=== PATIENT | male | born 1945 | race Caucasian/White ===

== ENCOUNTER 2022-03-22 13:02 | Emergency (ER) | payer MEDICARE, BC ==
[~2022-03-22] VITALS: Ht 170.2 cm; Wt 85.7 kg
[2022-03-22] MEDS ORDERED: METPRE4DP PO (15:39)
[2022-03-22] MEDS ORDERED: CELE100 PO (15:39)
== END 2022-03-22 15:51 | disposition home or self-care (01) ==
LOC: ER 13:02
DX: M51.16 Intervertebral disc disorders with radiculopathy, lumbar region (principal); Z88.8 Allergy status to other drugs, medicaments and biological substances
CPT/HCPCS: 72100; 99283-25; A9270; J1100

== ENCOUNTER → 2023-03-12 | Outpatient (CLI) | payer MEDICARE, BC ==
[~2023-03-12] MED LIST: ATOR40TA PO; Aspir 8181 MG PO; CELE100 PO; METPRE4DP PO; MULVITA PO; NUTRITIONAL SUPPLEME; TOPROL XL25 MG PO
== END ==
LOC: LAB 14:45 → LAB SHORT 14:45
DX: L57.0 Actinic keratosis (principal); L90.5 Scar conditions and fibrosis of skin
CPT/HCPCS: 88305

== ENCOUNTER 2023-12-17 07:35 | Emergency (ER) | payer MEDICARE, BC ==
[~2023-12-17] VITALS: Ht 170.2 cm; Wt 79.4 kg
[~2023-12-17 07:35] MED LIST changes: +Lasix20 MG PO; +Zithromax250 MG PO
[2023-12-17 07:47] VITALS: BP 132/100
[2023-12-17] MEDS ORDERED: LOSARTAN POTASS25 M2 PO (07:54)
[2023-12-17] MEDS ORDERED: CARV6.25 PO (07:55)
[2023-12-17] MEDS ORDERED: TORS10 PO (07:56)
[2023-12-17] MEDS ORDERED: OMEP20ER PO (07:56)
[2023-12-17] MEDS ORDERED: FARXIGA5 MG PO (07:57)
[2023-12-17] MEDS ORDERED: Cephalexin Monohydrate 500 MG Cap PO ONE (08:30)
[2023-12-17] MEDS ORDERED: CEPH500 PO (08:31)
== END 2023-12-17 08:50 | disposition home or self-care (01) ==
LOC: ER 07:35
DX: L03.221 Cellulitis of neck (principal); Z79.82 Long term (current) use of aspirin; Z79.899 Other long term (current) drug therapy; Z88.4 Allergy status to anesthetic agent
CPT/HCPCS: 99282; A9270

== ENCOUNTER 2024-04-07 16:29 | Inpatient (IN) | payer MEDICARE, BC ==
[~2024-04-07] VITALS: Ht 170.2 cm; Wt 80.3 kg
[~2024-04-07 16:29] MED LIST changes: +CEPH500 PO; +Carvedilol12.5 MG PO; +FARXIGA5 MG PO; +LOSARTAN POTASS25 M2 PO; +OMEP20ER PO; +TORSE20 PO
[2024-04-07 17:11] LABS: BASOPHILS ABSOLUTE AUTO 0.02 K/mm3 (0.00-0.23); BASOPHILS PERCENT AUTO 0 % (0-2); EOSINOPHILS ABSOLUTE AUTO 0.02 K/mm3 (0.00-0.68); EOSINOPHILS PERCENT AUTO 0 % (0-6); Hematocrit 35.5 % (37.0-53.0); Hemoglobin 11.9 g/dL (13.5-17.5); IMMATURE GRAN ABSOLUTE AUTO 0.03 K/mm3 (0.00-0.10); IMMATURE GRAN PERCENT AUTO 0 % (0-1); LYMPHOCYTES ABSOLUTE AUTO 0.48 K/mm3 (0.84-5.20); LYMPHOCYTES PERCENT AUTO 6 % (21-46); MONOCYTES ABSOLUTE AUTO 0.93 K/mm3 (0.16-1.47); MONOCYTES PERCENT AUTO 12 % (4-13); Mean Corpuscular HGB 29.4 pg (26.0-34.0); Mean Corpuscular HGB Conc 33.5 g/dL (31.5-36.5); Mean Corpuscular Volume 88 fL (80-100); Mean Platelet Volume 10.6 fL (9.1-12.4); NEUTROPHILS ABSOLUTE AUTO 6.28 K/mm3 (1.96-9.15); NEUTROPHILS PERCENT AUTO 81 % (41-73); Platelet Count 115 K/mm3 (150-400); RDW Coefficient Variation 14.6 % (11.7-14.2); RDW Standard Deviation 46.5 fL (35.1-46.3); Red Blood Cell Count 4.05 M/mm3 (4.30-5.90); White Blood Cell Count 7.76 K/mm3 (4.00-11.30)
[2024-04-07 17:38] LABS: Influenza A, PCR NEGATIVE (NEGATIVE); Influenza B, PCR NEGATIVE (NEGATIVE); Resp Syncytial Virus, PCR NEGATIVE (NEGATIVE); SARS-Cov-2 (COVID-19) PCR, MMC NEGATIVE (NEGATIVE)
[2024-04-07 17:47] LABS: Albumin, Blood 3.7 g/dL (3.4-5.0); Albumin/Globulin Ratio 1.1 (0.8-1.8); Bilirubin, Total 1.3 mg/dL (0.1-1.0); Bun/Creatinine Ratio 24.6 (12.0-20.0); Creatinine, Blood 1.3 mg/dL (0.60-1.20); Globulin, Blood 3.4 g/dL (2.2-4.0); Potassium, Blood 4.1 mmol/L (3.5-5.5); Total Protein, Blood 7.1 g/dL (6.4-8.2)
[2024-04-07 19:54] LABS: Source, Urine Clean Catch
[2024-04-07 19:57] LABS: Appearance, Urine Clear (Clear); Bilirubin, Urine Neg (Neg); Blood, Urine Neg (Neg); Color, Urine Amber (P-Yellow); Glucose Qualitative, Urine 4+ (Neg); Ketones, Urine Neg (Neg); Leukocyte Esterase, Urine Neg (Neg); Nitrite, Urine Neg (Neg); Protein, Urine 2+ (Neg); Specific Gravity, Urine 1.015 (1.003-1.022); Urobilinogen, Urine NORM (Normal)
[2024-04-07 20:04] LABS: Bacteria Few /hpf; Red Blood Cells, Urine 0-2 /hpf (0-2); Squamous Epithelial Cells Rare /hpf (Few); White Blood Cells, Urine 0-2 /hpf (0-5)
[2024-04-07] MEDS ORDERED: FLU VACC TS2024-25(6MOS UP)/PF 45 MCG/0.5 ML SYRINGE IM ONE (23:25)
[2024-04-08] MEDS ORDERED: Apixaban 5 MG Tab PO ONE (03:40)
[2024-04-08] MEDS ORDERED: HYDROcodone 5-APAP 325 TAB PO PRN (05:00)
[2024-04-08] MEDS ORDERED: Omeprazole 20 MG CapCR PO SCH ×3 (05:00→08:28)
[2024-04-08] MEDS ORDERED: ELIQUIS5 M2 PO (05:20)
[2024-04-08 05:55] LABS: BASOPHILS ABSOLUTE AUTO 0.01 K/mm3 (0.00-0.23); BASOPHILS PERCENT AUTO 0 % (0-2); EOSINOPHILS PERCENT AUTO 0 % (0-6); Hematocrit 37.1 % (37.0-53.0); Hemoglobin 12.2 g/dL (13.5-17.5); IMMATURE GRAN ABSOLUTE AUTO 0.05 K/mm3 (0.00-0.10); IMMATURE GRAN PERCENT AUTO 1 % (0-1); LYMPHOCYTES ABSOLUTE AUTO 0.79 K/mm3 (0.84-5.20); LYMPHOCYTES PERCENT AUTO 8 % (21-46); MONOCYTES ABSOLUTE AUTO 1.02 K/mm3 (0.16-1.47); MONOCYTES PERCENT AUTO 10 % (4-13); Mean Corpuscular HGB 29.7 pg (26.0-34.0); Mean Corpuscular HGB Conc 32.9 g/dL (31.5-36.5); Mean Corpuscular Volume 90 fL (80-100); Mean Platelet Volume 10.7 fL (9.1-12.4); NEUTROPHILS ABSOLUTE AUTO 8.31 K/mm3 (1.96-9.15); NEUTROPHILS PERCENT AUTO 82 % (41-73); Platelet Count 112 K/mm3 (150-400); RDW Coefficient Variation 14.8 % (11.7-14.2); RDW Standard Deviation 48.4 fL (35.1-46.3); Red Blood Cell Count 4.11 M/mm3 (4.30-5.90); White Blood Cell Count 10.18 K/mm3 (4.00-11.30)
[2024-04-08] MEDS ORDERED: SPIRONOLACTONE50 MG PO (06:04)
[2024-04-08 06:15] LABS: Albumin, Blood 3.8 g/dL (3.4-5.0); Albumin/Globulin Ratio 1.1 (0.8-1.8); Bilirubin, Total 1.4 mg/dL (0.1-1.0); Bun/Creatinine Ratio 26.1 (12.0-20.0); Calcium, Blood 9.1 mg/dL (8.5-10.1); Creatinine, Blood 1.15 mg/dL (0.60-1.20); Globulin, Blood 3.6 g/dL (2.2-4.0); Magnesium, Blood 2.4 mg/dL (1.6-2.4); Potassium, Blood 4.1 mmol/L (3.5-5.5); Total Protein, Blood 7.4 g/dL (6.4-8.2)
[2024-04-08] MEDS ORDERED: Carvedilol 6.25 MG Tab PO SCH (08:00)
[2024-04-08] MEDS ORDERED: Enoxaparin 40 MG/0.4 ML SYR SC SCH (09:00)
[2024-04-08] MEDS ORDERED: Aspirin 81 MG Chew PO SCH (09:00)
[2024-04-08] MEDS ORDERED: Atorvastatin 40 MG Tab PO SCH (09:00)
[2024-04-08] MEDS ORDERED: Apixaban 5 MG Tab PO SCH (09:00)
[2024-04-08] MEDS ORDERED: Losartan Potassium 25 MG Tab PO SCH (09:00)
[2024-04-08] MEDS ORDERED: Torsemide 10 MG TAB PO SCH (09:00)
[2024-04-08 12:25] VITALS: BP 118/59
--- NOTE | 2024-04-08 12:57 | NUR ---
PATIENT, , AND DAUGHTER IN ROOM, ROOM ORIENTATION, SMOKE SAFETY, AND RAPID RESPONSE EDUCATION REVEIWED, PLEASANT TO CARE, PATIENT ALERT AND ORIENTED TO CONCRETE QUESTIONS, EATING LUNCH NOW, BED ALARM ON FOR FORGETFULNESS, CALL LIGHT WITH IN REACH
[2024-04-08] MEDS ORDERED: Azithromycin 500 MG in NS 250 ML IV SCH (13:20)
[2024-04-08] MEDS ORDERED: CefTRIAXone Sodium 1,000 MG in NS 100 ML IV SCH (13:21)
[2024-04-08] MEDS ORDERED: NS 250 ML IV PRN (14:00)
[2024-04-08 15:45] LABS: Source, Urine Clean Catch
[2024-04-08 16:01] LABS: Appearance, Urine Clear (Clear); Bilirubin, Urine Neg (Neg); Blood, Urine 3+ (Neg); Color, Urine Yellow (P-Yellow); Glucose Qualitative, Urine 4+ (Neg); Ketones, Urine Neg (Neg); Leukocyte Esterase, Urine Neg (Neg); Nitrite, Urine Neg (Neg); Protein, Urine 3+ (Neg); Urobilinogen, Urine 1+ (Normal)
[2024-04-08] MEDS ORDERED: Propofol 10mg/ml 20 ml Vial (Procedural) IV ONE (16:17)
[2024-04-08 16:18] LABS: Bacteria Rare /hpf; Red Blood Cells, Urine 0-2 /hpf (0-2); Squamous Epithelial Cells Not Seen /hpf (Few); White Blood Cells, Urine 0-2 /hpf (0-5)
[2024-04-08] MEDS ORDERED: NS 1,000 ML IV SCH (16:25)
[2024-04-08] MEDS ORDERED: Ondansetron HCl 2 MG / ML 2ML Vial IV PRN (16:25)
--- NOTE | 2024-04-08 17:39 | NUR ---
"Spiritual Care | Pt. Request Pt. is awake in bed when he welcomes my visit. Pt. displays evidence of occasional confusion. Pt. Facilitated a short life review, mariaelena Pt. 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 Pt. verbalized that his had been with him all day. 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 Considered matters of georgette and belief. Pt. verbalized an expectation that he would be able return home. Prayed with Pt. Pt. verbalized gratitude for the spiritual care visit."
[2024-04-08 18:10] VITALS: BP 118/52
--- NOTE | 2024-04-08 18:19 | NUR ---
US DONE, EATING DIET, VERY FREQUENT URINE VOIDS AND ONLY 10 ML AT A TIMES, BLADDER SCANNED, AND ONLY 23 ML FOUND IN BLADDER. MEDICATED FOR NAUSEA WITH ZOFRAN, PATIENT REPORTS RELIEF, BED ALARM PROPERTY MAINTENANCE TECHNICIAN LIGHT WITH IN REACH
[2024-04-08 20:38] VITALS: BP 79/54
[2024-04-08 20:47] VITALS: BP 107/55
[2024-04-09 05:28] VITALS: BP 131/65
[2024-04-09 05:28] LABS: BASOPHILS ABSOLUTE AUTO 0.02 K/mm3 (0.00-0.23); BASOPHILS PERCENT AUTO 0 % (0-2); EOSINOPHILS PERCENT AUTO 0 % (0-6); Hematocrit 30.6 % (37.0-53.0); Hemoglobin 10.1 g/dL (13.5-17.5); IMMATURE GRAN ABSOLUTE AUTO 0.04 K/mm3 (0.00-0.10); IMMATURE GRAN PERCENT AUTO 0 % (0-1); LYMPHOCYTES ABSOLUTE AUTO 0.96 K/mm3 (0.84-5.20); LYMPHOCYTES PERCENT AUTO 10 % (21-46); MONOCYTES ABSOLUTE AUTO 1.35 K/mm3 (0.16-1.47); MONOCYTES PERCENT AUTO 15 % (4-13); Mean Corpuscular HGB 29.4 pg (26.0-34.0); Mean Corpuscular Volume 89 fL (80-100); Mean Platelet Volume 10.5 fL (9.1-12.4); NEUTROPHILS ABSOLUTE AUTO 6.97 K/mm3 (1.96-9.15); NEUTROPHILS PERCENT AUTO 75 % (41-73); Platelet Count 80 K/mm3 (150-400); RDW Coefficient Variation 14.6 % (11.7-14.2); RDW Standard Deviation 47.2 fL (35.1-46.3); Red Blood Cell Count 3.44 M/mm3 (4.30-5.90); White Blood Cell Count 9.34 K/mm3 (4.00-11.30)
[2024-04-09 05:53] LABS: Albumin, Blood 3.1 g/dL (3.4-5.0); Bilirubin, Total 0.9 mg/dL (0.1-1.0); Bun/Creatinine Ratio 24.8 (12.0-20.0); Calcium, Blood 8.7 mg/dL (8.5-10.1); Creatinine, Blood 1.09 mg/dL (0.60-1.20); Globulin, Blood 3.1 g/dL (2.2-4.0); Potassium, Blood 4.1 mmol/L (3.5-5.5); Total Protein, Blood 6.2 g/dL (6.4-8.2)
[2024-04-09 07:39] VITALS: BP 143/103
[2024-04-09 10:02] VITALS: BP 100/53
[2024-04-09] MEDS ORDERED: Vancomycin HCL 2,000 MG in NS 500 ML IV ONE (14:30)
[2024-04-09 15:25] VITALS: BP 99/51
--- NOTE | 2024-04-09 17:17 | NUR ---
NO ACUTE CHANGES, ALERT AND ORIENTED TO SELF, FAMILY, PLACE, PERSON AND MOST THINGS. TACHYPNEA, 1PA TO BATHROOM, CALL LIGHT WITH IN REACH, BED ALARM ON, PT/OT WORKED WITH PATIENT, WILL RELAY TO PM RN
[2024-04-09 20:04] VITALS: BP 91/43
[2024-04-09 20:51] VITALS: BP 118/59
[2024-04-10 03:10] VITALS: BP 131/71
--- NOTE | 2024-04-10 05:08 | NUR ---
SHIFT SUMMARY: PT IS A 78 YO FULL CODE MAN. PT WAS ADMITTED FOR ARF W/HYPOXIA. PT IS A 1-2 PERSON ASSIST TO THE BATHROOM. PT HAS A PACEMAKER BT NO TELE.PT IS ON 4L OF OXYGEN BUT DOESENT USE O2 AT HOME. PT GETS FORGETFUL SO BED ALARM IS SET.
[2024-04-10 05:50] LABS: BASOPHILS ABSOLUTE AUTO 0.02 K/mm3 (0.00-0.23); BASOPHILS PERCENT AUTO 0 % (0-2); EOSINOPHILS ABSOLUTE AUTO 0.02 K/mm3 (0.00-0.68); EOSINOPHILS PERCENT AUTO 0 % (0-6); Hematocrit 30.1 % (37.0-53.0); Hemoglobin 9.7 g/dL (13.5-17.5); IMMATURE GRAN ABSOLUTE AUTO 0.04 K/mm3 (0.00-0.10); IMMATURE GRAN PERCENT AUTO 1 % (0-1); LYMPHOCYTES ABSOLUTE AUTO 1.19 K/mm3 (0.84-5.20); LYMPHOCYTES PERCENT AUTO 14 % (21-46); MONOCYTES ABSOLUTE AUTO 1.55 K/mm3 (0.16-1.47); MONOCYTES PERCENT AUTO 19 % (4-13); Mean Corpuscular HGB 29.3 pg (26.0-34.0); Mean Corpuscular HGB Conc 32.2 g/dL (31.5-36.5); Mean Corpuscular Volume 91 fL (80-100); NEUTROPHILS ABSOLUTE AUTO 5.55 K/mm3 (1.96-9.15); NEUTROPHILS PERCENT AUTO 66 % (41-73); Platelet Count 83 K/mm3 (150-400); RDW Coefficient Variation 14.6 % (11.7-14.2); RDW Standard Deviation 48.9 fL (35.1-46.3); Red Blood Cell Count 3.31 M/mm3 (4.30-5.90); White Blood Cell Count 8.37 K/mm3 (4.00-11.30)
[2024-04-10 06:16] LABS: Bun/Creatinine Ratio 27.2 (12.0-20.0); Calcium, Blood 8.6 mg/dL (8.5-10.1); Creatinine, Blood 0.99 mg/dL (0.60-1.20); Potassium, Blood 4.3 mmol/L (3.5-5.5)
[2024-04-10 07:51] VITALS: BP 89/57
[2024-04-10 09:15] VITALS: BP 104/65
[2024-04-10] MEDS ORDERED: Vancomycin HCL 1,500 MG in NS 250 ML IV SCH (15:00)
--- NOTE | 2024-04-10 15:11 | NUR ---
patient in ct scan now
[2024-04-10 18:31] VITALS: BP 121/74
[2024-04-10 19:27] VITALS: BP 122/64
[2024-04-10] MEDS ORDERED: Sennosides 8.6 MG Tab PO SCH (21:00)
[2024-04-11 05:03] VITALS: BP 149/86
[2024-04-11 07:25] VITALS: BP 139/77
[2024-04-11 07:26] VITALS: BP 125/82
[2024-04-11 07:28] VITALS: BP 142/71
[2024-04-11] MEDS ORDERED: Lactobacil 2-S.Thermo-Bifido 1 1 Cap PO SCH (09:00)
[2024-04-11] MEDS ORDERED: Ampicillin Sod/Sulbactam Sod 3 GM in NS 100 ML IV SCH (12:00)
[2024-04-11 15:34] VITALS: BP 141/74
--- NOTE | 2024-04-11 17:10 | NUR ---
SHIFT SUMMARY PATIENT A&O X4, FORGETFUL AT TIMES. CALLS APPROPRIATELY, NOT IMPULSIVE. STANDBY ASSIST WITH FWW. CONTINENT. PATIETNT RECIEVED IV ANTIBIOTICS, TOLERATED WELL. TITRATED FROM 3L O2 VIA NASAL CANULA TO 1L O2 AND MAINTAINS SATS >90%. PATIENT IN ROOM, BEDSIDE CHAIR, CALL LIGHT IN REACH, NO SIGNS OR SYMPTOMS OF DISTRESS, PLAN OF CARE ONGOING.
--- NOTE | 2024-04-11 18:16 | NUR ---
REVIEWED AND AGREE WITH EDGER HAND'S DOCUMENTATION
[2024-04-11 20:54] VITALS: BP 145/73
[2024-04-11] MEDS ORDERED: Docusate Sodium 100 MG Cap PO SCH (21:00)
[2024-04-12 02:55] VITALS: BP 149/88
[2024-04-12 04:56] LABS: Hematocrit 29.6 % (37.0-53.0); Mean Corpuscular HGB 29.7 pg (26.0-34.0); Mean Corpuscular HGB Conc 33.8 g/dL (31.5-36.5); Mean Corpuscular Volume 88 fL (80-100); Mean Platelet Volume 11.1 fL (9.1-12.4); Platelet Count 108 K/mm3 (150-400); Red Blood Cell Count 3.37 M/mm3 (4.30-5.90); White Blood Cell Count 6.86 K/mm3 (4.00-11.30)
[2024-04-12 05:43] LABS: Albumin, Blood 3.1 g/dL (3.4-5.0); Albumin/Globulin Ratio 0.9 (0.8-1.8); Bilirubin, Total 1.4 mg/dL (0.1-1.0); Bun/Creatinine Ratio 20.5 (12.0-20.0); Calcium, Blood 8.8 mg/dL (8.5-10.1); Creatinine, Blood 0.83 mg/dL (0.60-1.20); Globulin, Blood 3.5 g/dL (2.2-4.0); Potassium, Blood 4.1 mmol/L (3.5-5.5); Total Protein, Blood 6.6 g/dL (6.4-8.2)
--- NOTE | 2024-04-12 05:45 | NUR ---
SHIFT SUMMARY ADMITTED FOR RESPIRATORY FAILURE. FULL CODE. IV ANTIB RX ARE SCHEDULED. THIS NEWEST ROUND OF BLOOD CULTURES IS AGAIN POSITIVE FOR GRAM POSITIVE COCCI IN CHAINS (IN ALL FOUR BOTTLES). CHARGE INFORMED. AMPICILLIN IS ALREADY SCHEDULED AND BEING ADMINISTERED. CARDIAC DIET. 1 ASSIST W/FWW- BRP. A&O X4, FORGETFUL. 1 LPM O2 VIA NC. HX OF CHF, VALVE REPLACEMENTS X2, AFIB, ELIQUIS.
[2024-04-12 07:48] VITALS: BP 135/87
[2024-04-12] MEDS ORDERED: CefTRIAXone Sodium 2,000 MG in NS 100 ML IV SCH (09:00)
--- NOTE | 2024-04-12 10:21 | NUR ---
DR. GALVEZ NOTIFED OF PATIENT'S POSITIVE BLOOD CULTURES. I ALSO NOTIFIED HER THAT I NOTICED THAT THE PATIENT HAS BEEN DIAPHORETIC THIS MORNING; COMPLAINING OF BEING HOT. PATIENT DOES NOT HAVE A TEMPERATURE ORAL 98.2 AND BLOOD SUGAR OF 116. PATIENT DENIES CHEST, SHORTNESS OF BREATH, NUMBNESS OR TINGLING. VITALS STABLE. DR. GALVEZ STATES TO DO AN EKG AND ORDER TROPONINS.
--- NOTE | 2024-04-12 12:02 | NUR ---
Pt. is awake and sitting up in a recliner. Spouse and daughter are at bediside. Pt. is pleasant. Facilitated an udpate from the Pt. Family at bedside engaged in matters of georgette and belief, and in the process a measure of rapport is established. Prayed for the Pt. Pt. and family verbalized gratitude for the spiritual care visit.
--- NOTE | 2024-04-12 16:53 | NUR ---
SHIFT SUMMARY: PATIENT IMPROVED THIS AFTERNOON; NO LONGER DIAPHORETIC AND STATING THAT HE IS FEELING BETTER. HE CONTINUES TO GET IV ANTIBIOTICS AND IS ALSO AWAITING NEGATIVE BLOOD CULTURES. HE IS STILL REQUIRING 1-2 LITERS OF NASAL CANNULA OXYGEN TO MAINTAIN OXYGEN SATURATION ABOVE 90%. PATIENT IS IN BED, BED ALARM SET, CALL LIGHT WITHIN REACH, NO SIGNS OR SYMPTOMS OF DISTRESS, PLAN OF CARE ONGOING.
[2024-04-12 17:07] VITALS: BP 156/91
[2024-04-12 21:24] VITALS: BP 147/81
[2024-04-12 22:00] VITALS: BP 123/90
--- NOTE | 2024-04-12 22:38 | NUR ---
NATALIA CASEY- UNWITNESSES FALL. PT REPORTS TO THIS FURNACE CHARGER THAT WHILE TRYING TO TRANSFER FROM HOSPITAL BED TO THE RESTROOM, PT FELL ON HIS BACK. PT DENIES HITTING HIS HEAD. PT DENIES ANY PAIN. VSS. CHARGE NURSE NOTIFIED. ON-CALL HOSPITALIST NOTIFIED. BED AT THE LOWEST POSITION, CALL LIGHT WITHIN USE. BED ALARM FOR SAFETY. EDUCATED ICT QUALITY ASSURANCE ENGINEER LIGHT, WILL SBA WHILE PT NEEDS TO USE THE RESTROOM. URINAL BY THE BEDSIDE THAT PT WAS USING DURING PREVIOUS SHIFT. PT ABLE TO USE THE URINAL DURING THIS SHIFT.
[2024-04-13] MEDS ORDERED: Melatonin 5 MG Tablet PO ONE (01:00)
[2024-04-13] MEDS ORDERED: Melatonin 5 MG Tablet PO PRN (01:00)
--- NOTE | 2024-04-13 01:37 | NUR ---
T-ORDER RECEIVED FOR MELATONIN PO 5MG QHS PRN FROM ON-CALL HOSPITALIST DR. HOPSON. ENTERED TO Expert, SEE EMAR.
--- NOTE | 2024-04-13 03:16 | NUR ---
SHIFT SUMMARY PT REPORTED FALLING OUT OF BED WHITE ATTEMPTING TO TRANSFER TO USE THE RESTROOM. PT REPORTS LANDING ON HIS BACK. PT DENIES HITTING HEAD ON THE FLOOR. FOUNDATION DIGGER NOTIFIED, ON-CALL HOSPITALIST NOTIFIED. IRIS FILED. SEE PREVIOUS NOTE. NO REDNESS OR SWELLING PER SHIFT ASSESSMENT. NO OPEN AREAS IN THE SKIN. PT AWAKE, REQUESTED "SLEEPING PILL", THIS RUG CUTTER CALLED ON-CALL HOSPITALIST DR. HOPSON, AND RECEIVED T-ORDER FOR PRN MELATONIN 5MG QHS. FIRST DOSE ADMINISTERED AT MIDNIGHT. PT APPEARS RESTLESS, WITH SOME CONFUSION SINCE THE BEGINNING OF THIS SHIFT. EASILY REORIENTED. PT PULLING ON O2 TUBING AND PULSE OX MONITOR CORD. O2 @2L VIA NASAL CANNULA>94% NEW IV ON RIGHT HAND. PT USING BEDSIDE URINAL, PULLUPS IN PLACE. PT C/O ABDOMINAL PAIN, PRN NORCO 5/325MG X1 ADMINISTERED WITH GOOD EFFECTIVNESS. PT AWAKE T/O THIS SHIFT, VOCALIZING PAIN. BED ALARM FOR SAFETY. NO ACUTE EVENTS DURING THE REST OF THE SHIFT. BED AT THE LOWEST POSITION, CALL LIGHT W/I REACH. RE-EDUCATED ELECTRODYNAMICIST LIGHT, AND EDUCATED TO REQUEST SBA OR 1-PERSON ASSIST WHEN NEED TO AMBULATE.
[2024-04-13 04:02] VITALS: BP 123/90
[2024-04-13 08:38] VITALS: BP 152/94
[2024-04-13] MEDS ORDERED: Furosemide 10 MG / ML 2ML Vial IV SCH (15:00)
[2024-04-13 16:23] VITALS: BP 118/86
--- NOTE | 2024-04-13 18:31 | NUR ---
Pt woke up this morning confused, pulled his IV and asked RN for help, Pt reoriented to hospital, and quickly was A&Ox4 and cooperative with care for the remainder of the shift. Attempted to wean pt off of O2, but pt desated to 85%, 2 L O2 via NC resumed, pt saturated in 90s. Pt complained of right shoulder pain from previous injury, PRN [place] given x1 effective. Lasix started today, pt encouraged to urinate in urinal for accurate output measurment. Blood cultures came back with gram (+) cocci and MD inessa aware, repeat cultures to be drawn with AM labs. Bed alarm set, call light in reach, bed in low and locked position.
--- NOTE | 2024-04-13 18:38 | NUR ---
Pt. is sitting up on the jesús eof his bed eating dinner when he calls me into the room and welcomes my visit. Pt. is Pleasant. Facilitated a conversation regard the Pts. care plan, and with theraputic listening was able to give the Pt. some encouragement. This attendance secretary let the Pt. continue with his dinner. Pt. welcomed this attendance secretary to return tomorrow.
[2024-04-13 19:23] VITALS: BP 129/76
[2024-04-14 02:11] VITALS: BP 103/71
--- NOTE | 2024-04-14 03:08 | NUR ---
SHIFT SUMMARY PT IS A&O X2-3 DURING THIS SHIFT, CONFUSED AND AWAKE T/O THE NIGHT. PRN MELATONIN ADMINISTERED, NORCO ADMINISTERED X2 FOR 7/10 CHRONIC SHOULDER PAIN. PT HAS URGENCY TO VOID, BED ALARM FOR SAFETY. RE-EDUCATED ON URINAL USE. PT UP IN THE HALLWAY ASKING WHERE THE RESTROOM IS. REORIENTED TO THE HOSPITAL ROOM. NO ACUTE EVENTS DURING THIS SHIFT. BED AT LOWEST POSITION, CALL LIGHT W/I REACH.
--- NOTE | 2024-04-14 05:20 | NUR ---
PT IS IRRITATED D/T AWAKE T/O THE NIGHT. DID NOT GET ANY REST.
[2024-04-14 05:41] LABS: BASOPHILS ABSOLUTE AUTO 0.05 K/mm3 (0.00-0.23); BASOPHILS PERCENT AUTO 1 % (0-2); EOSINOPHILS ABSOLUTE AUTO 0.22 K/mm3 (0.00-0.68); EOSINOPHILS PERCENT AUTO 2 % (0-6); Hematocrit 29.1 % (37.0-53.0); Hemoglobin 9.6 g/dL (13.5-17.5); IMMATURE GRAN ABSOLUTE AUTO 0.19 K/mm3 (0.00-0.10); IMMATURE GRAN PERCENT AUTO 2 % (0-1); LYMPHOCYTES ABSOLUTE AUTO 1.32 K/mm3 (0.84-5.20); LYMPHOCYTES PERCENT AUTO 14 % (21-46); MONOCYTES ABSOLUTE AUTO 1.28 K/mm3 (0.16-1.47); MONOCYTES PERCENT AUTO 13 % (4-13); Mean Corpuscular HGB 29.7 pg (26.0-34.0); Mean Corpuscular Volume 90 fL (80-100); Mean Platelet Volume 11.4 fL (9.1-12.4); NEUTROPHILS ABSOLUTE AUTO 6.65 K/mm3 (1.96-9.15); NEUTROPHILS PERCENT AUTO 68 % (41-73); Platelet Count 171 K/mm3 (150-400); RDW Standard Deviation 45.6 fL (35.1-46.3); Red Blood Cell Count 3.23 M/mm3 (4.30-5.90); White Blood Cell Count 9.71 K/mm3 (4.00-11.30)
[2024-04-14 06:12] LABS: Albumin/Globulin Ratio 0.9 (0.8-1.8); Bilirubin, Total 0.9 mg/dL (0.1-1.0); Bun/Creatinine Ratio 20.9 (12.0-20.0); Calcium, Blood 8.9 mg/dL (8.5-10.1); Creatinine, Blood 0.81 mg/dL (0.60-1.20); Globulin, Blood 3.5 g/dL (2.2-4.0); Potassium, Blood 4.2 mmol/L (3.5-5.5); Total Protein, Blood 6.5 g/dL (6.4-8.2)
[2024-04-14 07:15] VITALS: BP 139/99
[2024-04-14] MEDS ORDERED: Furosemide 10 MG / ML 2ML Vial IV SCH (08:02)
[2024-04-14 14:49] VITALS: BP 117/77
[2024-04-14 16:17] VITALS: BP 96/54
[2024-04-14] MEDS ORDERED: Digoxin 0.25 MG Tab PO ONE (17:35)
[2024-04-14] MEDS ORDERED: Ampicillin Sod 2,000 MG in NS 100 ML IV SCH (18:00)
--- NOTE | 2024-04-14 18:05 | NUR ---
SHIFT SUMMARY MR BROWN IS ORIENTATED TO HIMSELF, SOMETIMES TO DATE, ORIENTATED TO PLACE AND VAGUE ABOUT REASON FOR BEING HERE IN THE HOSPITAL. HE SEEMED A CLEARER IN CONVERSATION THIS AFTERNOON THAN THIS MORNING. HIS WAS VISITING WITH HIM MOST OF THE DAY. SHE REPORTS THAT HE IS NOT NORMALLY CONFUSED. ON OXYGEN 2L N/C TODAY, ONLY REMOVED IT HIMSELF ONCE. PT AMBULATED TO BR MULTIPLE TIMES FOR FLATUS, NO BM. GAIT BELT, WALKER AND STAND BY ASSISTANCE. BED ALARM AND CHAIR ALARMS IN USE. MR BROWN MET WITH EYE CLINIC MANAGER TODAY; PLAN FOR MAGDA IN THE MORNING. C/O PAIN TO SHOULDER AND RIGHT ARM, MEDS HELPS TO TAKE THE EDGE OFF. R ARM PROPPED ON PILLOW. BED LOW, CALL LIGHT IN REACH.
[2024-04-14 19:23] VITALS: BP 122/72
[2024-04-15] VITALS (27 sets, daily range): BP systolic 101–176; BP diastolic 58–103
--- NOTE | 2024-04-15 00:44 | NUR ---
PT DEVELOPED EPITAXIS. PT IS NPO FOR SCHEDULED MAGDA PROCEDURE THIS AM. TRANSFER AND PUMPHOUSE OPERATOR NOTIFIED. THIS FERMENTER [place]AMPAGNE BY THE BEDSIDE.
--- NOTE | 2024-04-15 01:17 | NUR ---
PT DEVELOPED EPITAXIS. LASTING >30-45 MINS OF SIGNING THIS NOTE. THIS ELECTRONIC WIRER NOTIFIED LOCK UP WORKER AND CALLED ON-CALL HOSPITALIST. DR. RODRIGUEZ ASKED TO CALL BACK, IF LASTING >1HR, AND TO APPLY COOL COMPRESS. PT IS NPO AFTER MIDNIGHT D/T SCHEDULED MAGDA PROCEDURE TODAY.
--- NOTE | 2024-04-15 03:10 | NUR ---
SHIFT SUMMARY PT NPO AFTER MIDNIGHT, D/T SCHEDULED MAGDA PROCEDURE TODAY. PT UNABLE TO GET REST/SLEEP. HS PRN MELATONIN NOT EFFECTIVE. [id number] PT HAD EPITAXIS, NOT ON ACTIVE BLOOD THINNER MEDICATIONS PER EMAR. LIVESTOCK PRODUCER NOTIFIED. ON-CALL HOSPITALIST NOTIFIED. PER ORDER: COOL COMPRESS AND CALL BACK, IF BLEEDING>1HR. @0145 BLEEDING STOPPPED. @0145 PT REPORTS 10/10 BILATERAL CHRONIC SHOULDER PAIN. PRN NORCO ADMINISTERED WITH SIPS OF H2O. @0230 PT C/O DIZZINESS. RN BY THE BEDSIDE, NEURO ASSESSMENT WNL. VS 112/74, P.103, O2@2L, SAT'S 96%. @0245 PT REPORTS FEELING BETTER, RESTING IN BED. BED AT THE LOWEST POSITION, CALL LIGHT W/I REACH. PT IS A&O X 3, ABLE TO MAKE HIS NEEDS KNOWN, AND COOPERATIVE WITH CARE.
[2024-04-15] MEDS ORDERED: Oxymetazoline 0.05% Nasal Relief Spray 15mL BTL PRN ×2 (05:10→05:45)
--- NOTE | 2024-04-15 05:10 | NUR ---
NEW T-ORDER FROM ON-CALL HOSPITALIST : AFRIN NASAL SPRAY: 1 SPRAY Q6HRS PRN X4. ENTERED TO [employer], SEE EMAR. NO ADDITIONAL NEW ORDERS AT THIS TIME.
[2024-04-15 09:18] LABS: Bun/Creatinine Ratio 21.9 (12.0-20.0); Calcium, Blood 8.9 mg/dL (8.5-10.1); Creatinine, Blood 0.78 mg/dL (0.60-1.20); Potassium, Blood 4.1 mmol/L (3.5-5.5)
[2024-04-15] MEDS ORDERED: NS 1,000 ML IV ONE (09:39)
[2024-04-15] MEDS ORDERED: Benzocaine Oral Spray 0.5ML UD ONE (09:43)
--- NOTE | 2024-04-15 11:10 | NUR ---
REPORT CALLED TO LUCHO BARRETT; ALL QUESTIONS ANSWERED. PT RETURNED TO RM 356 VIA W/C, CONDITION STABLE.
--- NOTE | 2024-04-15 15:19 | NUR ---
SHIFT SUMMARY MR BROWN HAD MAGDA DONE THIS AM. HE WAS AWAKE AND COMFORTABLE ON RETURN TO MEDICAL UNIT. HE IS ORIENTATED TO HIMSELF, TO DATE, TO SITUATION AND TO HOSPITAL, BUT FORGETS THE NAME OF THE HOSPITAL OR THAT HE IS IN [place]. HE IS FORGETFUL BUT ENGAGES APPROPRIATELY IN CONVERSATION ABOUT HIS CARE. HE AMBULATED AROUND THE HALLWAYS VERY WELL ON 2L NC, WITH GAIT BELT AND WALKER. HE WAS STEADY WITH S/B ASSISTANCE. HE DENIED FEELING SOB AFTER WALKING. PULSE OX 97% AFTER WALKING SO TESTED ON ROOM AIR, SOMETIMES IN THE 90S BUT DOES DROP TO THE 80S ON ROOM AIR AT TIMES, SO BACK ON 2L NC. HE HAS CHRONIC R SHOULDER PAIN, HAS NOT REQUESTED PAIN MEDICATIONS THIS SHIFT. VERY SUPPORTIVE AT BEDSIDE. IN CHAIR WITH CHAIR ALARM ON, CALL LIGHT IN REACH.
[2024-04-15] MEDS ORDERED: Apixaban 5 MG Tab PO SCH (21:00)
--- NOTE | 2024-04-16 04:55 | NUR ---
SHIFT SUMMARY ALERT, ORIENTED TO SELF/DATE & TIME/SITUATION. PERIODS OF CONFUSION, REDIRECTABLE. COOPERATIVE & PLEASANT. NEW IV PLACED TO RAC, PREVIOUS IV DC'D BY PT SELF-REMOVAL DURING PERIOD OF CONFUSION. PT ON 2L NC OVERNIGHT, SPOT CHECKS SHOWING SPO2 93-95%. SPOT CHECK ON RA SHOWING SPO2 81-84%. PT ABLE TO REST DURING SHIFT. ABLE TO VOICE NEEDS, CALL LIGHT IN REACH & PT USING CALL LIGHT APPROPRIATELY. VOIDING, NO BM OVERNIGHT. PASSING GAS. PT VOICED UNDERSTANDING OF PLAN OF CARE, DENIES QUESTIONS/CONCERNS AT THIS TIME.
[2024-04-16 05:33] VITALS: BP 145/86
[2024-04-16 07:17] VITALS: BP 135/73
[2024-04-16 08:54] VITALS: BP 137/85
[2024-04-16 15:03] VITALS: BP 124/74
[2024-04-16 16:17] VITALS: BP 133/64
--- NOTE | 2024-04-16 16:38 | NUR ---
SHIFT SUMMARY MR BROWN SEEMS LESS CONFUSED TODAY, ORIENTATED TO SELF, PLACE, DATE AND SITUATION. FORGETFUL AT TIMES. HE WAS MORE SLEEPY TODAY AFTER 3 NIGHTS OF POOR SLEEP AND HAS TRAZADONE PX FOR THIS EVENING. HE AMBULATED AROUND THE HALLS WITH GAITBELT, WALKER, OXYGEN AND S/B ASSISTANCE. DECREASED TO 1LNC AND SATS ~93-94%. DOING INCENTIVE SPIROMETRY UP TO 1500CC WITH DECENT TECHNIQUE. BED AND CHAIR ALARMS USED. CALL LIGHT IN REACH. SUPPORTIVE AT BEDSIDE FOR MUCH OF THE DAY. PLAN FOR S.N.F. AT DISCHARGE RATHER THAT HOME ABX PER /MD. OUTBOUND SALES PROFESSIONAL NOTIFIED OF CHANGE OF PLAN.
[2024-04-16 20:18] VITALS: BP 101/55
[2024-04-16] MEDS ORDERED: Nystatin 100,000 Unit/GM CREAM 15 GM TOP SCH (21:00)
[2024-04-16] MEDS ORDERED: TraZODone HCl 50 MG Tab PO SCH (21:00)
[2024-04-17 04:48] VITALS: BP 122/66
[2024-04-17 04:55] LABS: BASOPHILS ABSOLUTE AUTO 0.05 K/mm3 (0.00-0.23); BASOPHILS PERCENT AUTO 1 % (0-2); EOSINOPHILS PERCENT AUTO 2 % (0-6); Hematocrit 27.2 % (37.0-53.0); IMMATURE GRAN ABSOLUTE AUTO 0.14 K/mm3 (0.00-0.10); IMMATURE GRAN PERCENT AUTO 2 % (0-1); LYMPHOCYTES ABSOLUTE AUTO 1.31 K/mm3 (0.84-5.20); LYMPHOCYTES PERCENT AUTO 15 % (21-46); MONOCYTES ABSOLUTE AUTO 1.48 K/mm3 (0.16-1.47); MONOCYTES PERCENT AUTO 17 % (4-13); Mean Corpuscular HGB 29.8 pg (26.0-34.0); Mean Corpuscular HGB Conc 33.1 g/dL (31.5-36.5); Mean Corpuscular Volume 90 fL (80-100); NEUTROPHILS PERCENT AUTO 65 % (41-73); Platelet Count 224 K/mm3 (150-400); RDW Coefficient Variation 14.1 % (11.7-14.2); RDW Standard Deviation 46.1 fL (35.1-46.3); Red Blood Cell Count 3.02 M/mm3 (4.30-5.90); White Blood Cell Count 8.98 K/mm3 (4.00-11.30)
[2024-04-17 05:24] LABS: C-REACTIVE PROTEIN, EXT RANGE 3.89 mg/dL (0.000-0.300)
[2024-04-17 05:25] LABS: Albumin, Blood 2.7 g/dL (3.4-5.0); Albumin/Globulin Ratio 0.8 (0.8-1.8); Bilirubin, Total 0.7 mg/dL (0.1-1.0); Bun/Creatinine Ratio 17.4 (12.0-20.0); Calcium, Blood 8.8 mg/dL (8.5-10.1); Creatinine, Blood 0.86 mg/dL (0.60-1.20); Globulin, Blood 3.2 g/dL (2.2-4.0); Potassium, Blood 3.5 mmol/L (3.5-5.5); Total Protein, Blood 5.9 g/dL (6.4-8.2)
[2024-04-17 07:27] VITALS: BP 154/79
[2024-04-17] MEDS ORDERED: Potassium Chloride 20 MEQ TabCR PO ONE (12:00)
[2024-04-17] MEDS ORDERED: Losartan Potassium 25 MG Tab PO SCH (12:00)
[2024-04-17 16:45] VITALS: BP 107/69
--- NOTE | 2024-04-17 17:06 | NUR ---
SHIFT SUMMARY: PT AOX4 THROUGHOUT THE DAY, BUT FORGETFUL. HARD OF HEARING. WAS AT BEDSIDE MOST OF THE DAY. PT RECEPTIVE TO CARE. WAS ABLE TO AMBULATE INTO THE CHAIR AND BACK TO BED WITH WALKER AND STANDBY ASSIST. STILL COMPLAINING OF R SHOULDER PAIN FROM A FALL A FEW MONTHS BACK. MEDICATED PER EMR. TOLERATING MEDICATIONS AND ANTIBIOTIC TREATMENT. PT IN GOOD MOOD BUT FLAT AFFECT ASKING FOR SNACKS AND DINNER. PT RESTING IN BED, CALL LIGHT IN REACH AND BED IN LOWEST POSITION. CONTINUING CARE.
[2024-04-17 19:25] VITALS: BP 110/72
[2024-04-18 03:43] VITALS: BP 129/78
[2024-04-18 05:04] LABS: BASOPHILS ABSOLUTE AUTO 0.05 K/mm3 (0.00-0.23); BASOPHILS PERCENT AUTO 1 % (0-2); EOSINOPHILS ABSOLUTE AUTO 0.19 K/mm3 (0.00-0.68); EOSINOPHILS PERCENT AUTO 2 % (0-6); Hematocrit 28.3 % (37.0-53.0); Hemoglobin 9.4 g/dL (13.5-17.5); IMMATURE GRAN ABSOLUTE AUTO 0.12 K/mm3 (0.00-0.10); IMMATURE GRAN PERCENT AUTO 1 % (0-1); LYMPHOCYTES ABSOLUTE AUTO 1.15 K/mm3 (0.84-5.20); LYMPHOCYTES PERCENT AUTO 12 % (21-46); MONOCYTES ABSOLUTE AUTO 1.39 K/mm3 (0.16-1.47); MONOCYTES PERCENT AUTO 15 % (4-13); Mean Corpuscular HGB 29.8 pg (26.0-34.0); Mean Corpuscular HGB Conc 33.2 g/dL (31.5-36.5); Mean Corpuscular Volume 90 fL (80-100); Mean Platelet Volume 9.8 fL (9.1-12.4); NEUTROPHILS ABSOLUTE AUTO 6.63 K/mm3 (1.96-9.15); NEUTROPHILS PERCENT AUTO 70 % (41-73); Platelet Count 216 K/mm3 (150-400); RDW Coefficient Variation 14.2 % (11.7-14.2); RDW Standard Deviation 46.6 fL (35.1-46.3); Red Blood Cell Count 3.15 M/mm3 (4.30-5.90); White Blood Cell Count 9.53 K/mm3 (4.00-11.30)
--- NOTE | 2024-04-18 05:08 | NUR ---
BOARD MEMBER SUMMARY NO ACUTE EVENTS OVERNIGHT. PT HAS HAD INTERMITENT RUQ PAIN, WHICH IS NOT NEW AND HE HAS HAD A WORKUP DONE ALREADY FOR THIS. MEDICATED PER EMAR WITH GOOD RESULTS.
[2024-04-18 05:31] LABS: Albumin, Blood 2.9 g/dL (3.4-5.0); Albumin/Globulin Ratio 0.9 (0.8-1.8); Bilirubin, Total 0.7 mg/dL (0.1-1.0); Bun/Creatinine Ratio 18.7 (12.0-20.0); Calcium, Blood 8.9 mg/dL (8.5-10.1); Creatinine, Blood 0.75 mg/dL (0.60-1.20); Globulin, Blood 3.4 g/dL (2.2-4.0); Total Protein, Blood 6.3 g/dL (6.4-8.2)
[2024-04-18 07:49] VITALS: BP 122/77
[2024-04-18] MEDS ORDERED: Spironolactone 50 MG Tab PO SCH (09:00)
--- NOTE | 2024-04-18 09:00 | NUR ---
pt sitting up in a chair for breakfast, nods off when not being spoken to, spouce at bedside, a/ox4, forgetful, cooperative with care, follows commands well, lungs are clear in upper [place], and left base, right base is dim, no cough noted at this time, on 2 liters o2 via n/c, hrirr, murmur noted, no edema noted, ppp+2, cap refill <3 sec, vs stable, afebrile, piv to lfa site is clear and patent, btx4, abd flat soft nontender, voids via urinal, skin ok, maew, melania, call light in reach.
--- NOTE | 2024-04-18 11:11 | NUR ---
pt back in bed, complains of pain to rlq, he pointed to r mid quad for me, but Dr. Simmons came in and he was pointing much lower, bladder scan shows 320mls, will have him void and recheck, at bedside, he is still very sleepy. call light in reach.
--- NOTE | 2024-04-18 11:22 | NUR ---
pt able to void 200mls, rechecked bladder scan showed 195mls, states pain is better, call light in reach.
[2024-04-18] MEDS ORDERED: Norco 5-325 Ta1 EACH PO (12:48)
[2024-04-18] MEDS ORDERED: Docusate Sodiu100 M1 PO (12:48)
[2024-04-18] MEDS ORDERED: NYSTRIT TOP (12:49)
[2024-04-18] MEDS ORDERED: AFRIN15 M6 (12:51)
[2024-04-18] MEDS ORDERED: SENNA LAXATIVE8.6 MG PO (12:51)
[2024-04-18] MEDS ORDERED: TRAZ50 PO (12:52)
[2024-04-18] MEDS ORDERED: VISBIOME 112.51 EACH PO (12:53)
--- NOTE | 2024-04-18 14:28 | NUR ---
Pt will be transferring to [facility], power glide was placed to [facility], site is clear and patent, piv removed intact, got him dressed, will be picked up at 1500 via wheelchair transport, report given to Gaby at [facility]. pt has all belongings packed, and is ready to go.
--- NOTE | 2024-04-18 15:20 | NUR ---
transport here to take pt to [facility], left via wheelchair with all his belongings, his will follow him over. paperwork given to xm1 tank driver.
[2024-04-19] MEDS ORDERED: Torsemide 20 MG TAB PO SCH (09:00)
[2024-04-19 10:08] LABS: SARS-Cov-2 (COVID-19) PCR, MMC NEGATIVE (NEGATIVE)
== END 2024-04-18 15:20 | DRG 871 ==
LOC: ER 16:29 → ERHOLD 16:30 → MEDS 16:30
PROVIDERS: Emergency Medicine; Internal Medicine; Physician Assistant; ADMIT Student in an Organized Health Care Education/Training Program
PROC: 3E03329 Introduction of Other Anti-infective into Peripheral Vein, Percutaneous Approach (ICD-10-PCS; 2024-04-08)
PROC: B24BZZ4 Ultrasonography of Heart with Aorta, Transesophageal (ICD-10-PCS; principal; 2024-04-15)
DX: A41.81 Sepsis due to Enterococcus (principal); J96.01 Acute respiratory failure with hypoxia; I50.22 Chronic systolic (congestive) heart failure; I48.20 Chronic atrial fibrillation, unspecified; N17.9 Acute kidney failure, unspecified; E87.20 Acidosis, unspecified; I27.20 Pulmonary hypertension, unspecified; Z96.642 Presence of left artificial hip joint; I95.1 Orthostatic hypotension; G47.33 Obstructive sleep apnea (adult) (pediatric); D69.6 Thrombocytopenia, unspecified; K21.9 Gastro-esophageal reflux disease without esophagitis; I11.0 Hypertensive heart disease with heart failure; K59.00 Constipation, unspecified; Z88.8 Allergy status to other drugs, medicaments and biological substances; Z79.82 Long term (current) use of aspirin; Z79.899 Other long term (current) drug therapy; Z95.0 Presence of cardiac pacemaker; Z95.3 Presence of xenogenic heart valve; Z79.01 Long term (current) use of anticoagulants
CPT/HCPCS: 0241U; 36415; 71046; 71260; 74177; 76705; 80048; 80053; 81001; 82947; 83605; 83735; 83880; 84145; 84484; 85025; 85027; 85379; 85651; 86140; 87040; 87077; 87086; 87186; 93005; 93010; 93308; 93312; 93321; 93325; 94664; 94760; 94762; 96365; 97110; 97161; 97165; 97530; 97535; 99285-25; A9270; C1751; G0378; J0290; J0295; J0456; J0696; J1940; J2405; J2704; J3370; J7030; J7040; J7050; Q9967; U0002

== ENCOUNTER 2024-04-28 10:51 | Emergency (ER) | payer MEDICARE, BC ==
[~2024-04-28] VITALS: Ht 170.2 cm; Wt 74.8 kg
[~2024-04-28 10:51] MED LIST changes: +AFRIN15 M6; +Docusate Sodiu100 M1 PO; +ELIQUIS5 M2 PO; +NYSTRIT TOP; +Norco 5-325 Ta1 EACH PO; +SENNA LAXATIVE8.6 MG PO; +SPIRONOLACTONE50 MG PO; +TRAZ50 PO; +VISBIOME 112.51 EACH PO
[2024-04-28 11:29] LABS: BASOPHILS ABSOLUTE AUTO 0.08 K/mm3 (0.00-0.23); BASOPHILS PERCENT AUTO 1 % (0-2); EOSINOPHILS ABSOLUTE AUTO 0.21 K/mm3 (0.00-0.68); EOSINOPHILS PERCENT AUTO 2 % (0-6); Hematocrit 34.1 % (37.0-53.0); Hemoglobin 11.2 g/dL (13.5-17.5); IMMATURE GRAN ABSOLUTE AUTO 0.06 K/mm3 (0.00-0.10); IMMATURE GRAN PERCENT AUTO 1 % (0-1); LYMPHOCYTES ABSOLUTE AUTO 1.65 K/mm3 (0.84-5.20); LYMPHOCYTES PERCENT AUTO 16 % (21-46); MONOCYTES PERCENT AUTO 15 % (4-13); Mean Corpuscular HGB 29.6 pg (26.0-34.0); Mean Corpuscular HGB Conc 32.8 g/dL (31.5-36.5); Mean Corpuscular Volume 90 fL (80-100); Mean Platelet Volume 10.5 fL (9.1-12.4); NEUTROPHILS PERCENT AUTO 65 % (41-73); Platelet Count 231 K/mm3 (150-400); RDW Coefficient Variation 13.9 % (11.7-14.2); RDW Standard Deviation 45.3 fL (35.1-46.3); Red Blood Cell Count 3.79 M/mm3 (4.30-5.90)
[2024-04-28 11:48] LABS: Albumin, Blood 3.4 g/dL (3.4-5.0); Albumin/Globulin Ratio 0.9 (0.8-1.8); Bilirubin, Total 0.5 mg/dL (0.1-1.0); Bun/Creatinine Ratio 30.3 (12.0-20.0); Calcium, Blood 9.1 mg/dL (8.5-10.1); Creatinine, Blood 1.09 mg/dL (0.60-1.20); Globulin, Blood 3.9 g/dL (2.2-4.0); Potassium, Blood 3.8 mmol/L (3.5-5.5); Total Protein, Blood 7.3 g/dL (6.4-8.2)
[2024-04-28 14:15] VITALS: BP 106/71
== END 2024-04-28 14:21 | disposition home or self-care (01) ==
LOC: ER 10:51
PROVIDERS: Emergency Medicine
DX: R07.9 Chest pain, unspecified (principal); Z88.8 Allergy status to other drugs, medicaments and biological substances; Z79.82 Long term (current) use of aspirin; Z79.899 Other long term (current) drug therapy
CPT/HCPCS: 71046; 80053; 83690; 84484; 85025; 93005; 93010; 99285-25

== ENCOUNTER 2024-05-14 15:32 | Inpatient (IN) | payer MEDICARE, BC ==
[~2024-05-14] VITALS: Ht 170.2 cm; Wt 80.0 kg
[2024-05-14] MEDS ORDERED: Morphine Sulfate 4 MG/1 ML Injection IV ONE (16:05)
[2024-05-14] MEDS ORDERED: Ondansetron HCl 2 MG / ML 2ML Vial IV ONE (16:05)
[2024-05-14 16:48] LABS: C-REACTIVE PROTEIN, EXT RANGE 10.3 mg/dL (0.000-0.300); Uric Acid, Blood 4.4 mg/dL (3.5-7.2)
[2024-05-14] MEDS ORDERED: Vancomycin HCL 2,000 MG in NS 500 ML IV ONE (17:15)
[2024-05-14] MEDS ORDERED: OxyCODONE 5 mg/Acetamin 325 mg TABLET PO PRN (19:00)
[2024-05-14] MEDS ORDERED: TraZODone HCl 50 MG Tab PO PRN (19:20)
[2024-05-14 20:40] VITALS: BP 117/80
[2024-05-14] MEDS ORDERED: Sennosides 8.6 MG Tab PO SCH (21:00)
[2024-05-14] MEDS ORDERED: FLU VACC TS2024-25(6MOS UP)/PF 45 MCG/0.5 ML SYRINGE IM ONE (21:00)
[2024-05-14] MEDS ORDERED: Lactobacil 2-S.Thermo-Bifido 1 1 Cap PO SCH (21:00)
[2024-05-14] MEDS ORDERED: Apixaban 5 MG Tab PO SCH (21:00)
[2024-05-14] MEDS ORDERED: FentaNYL Citrate 50 MCG/ML 2 ML Injection IV PRN (21:50)
[2024-05-15] MEDS ORDERED: Piperacillin/Tazobactam Sod 3.375 GM in NS 100 ML IV SCH
--- NOTE | 2024-05-15 04:38 | NUR ---
SHIFT SUMMARY, DOREEN SLEPT IN LONG INTERVALS O2 AT 3- 4 L/ NC CALLED HOSPITALIST FOR ORDER FOR HEADAACHE. TELE SR 98
--- NOTE | 2024-05-15 04:43 | NUR ---
SHIFT SUMMARY PATIENT AWAKE MOST OF THE NIGHT. DID CALL HOSPITALIST FOR STRONGER PAIN MED. THIS HAS HELPED ALOT. HE NEEDS REMINDERS TO USE CALL LIGHT. TRIED TO HAVE HIM LEAVE FOOT ELEVATED ON PILLOWS AND DID HAVE ICE TO HIS FOOT.
[2024-05-15 05:15] VITALS: BP 151/64
[2024-05-15] MEDS ORDERED: Omeprazole 20 MG CapCR PO SCH (06:00)
[2024-05-15 07:09] VITALS: BP 122/59
[2024-05-15] MEDS ORDERED: Carvedilol 6.25 MG Tab PO SCH (08:00)
[2024-05-15] MEDS ORDERED: Spironolactone 25 MG Tab PO SCH (09:00)
[2024-05-15] MEDS ORDERED: Torsemide 20 MG TAB PO SCH (09:00)
[2024-05-15] MEDS ORDERED: Empagliflozin 10 MG TAB PO SCH (09:00)
[2024-05-15] MEDS ORDERED: Atorvastatin 40 MG Tab PO SCH (09:00)
[2024-05-15 10:49] VITALS: BP 115/63
[2024-05-15] MEDS ORDERED: Acetaminophen 325 MG TABLET PO PRN (11:05)
[2024-05-15 16:22] VITALS: BP 99/48
[2024-05-15 16:26] LABS: International Normalized Ratio 1.05; Prothrombin Time Results 11.2 Sec (9.7-11.5)
[2024-05-15 16:28] LABS: Anti-Xa UFH, PHA Monitoring >1.50 IU/mL
[2024-05-15] MEDS ORDERED: Vancomycin HCL 1,250 MG in NS 250 ML IV SCH (17:00)
[2024-05-15] MEDS ORDERED: OxyCODONE 5 mg/Acetamin 325 mg TABLET PO PRN (17:05)
[2024-05-15 17:29] VITALS: BP 97/53
[2024-05-15] MEDS ORDERED: Colchicine 0.6 MG TAB PO ONE (18:00)
[2024-05-15] MEDS ORDERED: Ketorolac Tromethamine 15mg Vial IV ONE (18:00)
[2024-05-15] MEDS ORDERED: Lactated Ringer's 1,000 ML IV SCH (18:00)
[2024-05-15] MEDS ORDERED: Midodrine 5 MG Tab PO SCH (18:00)
[2024-05-15] MEDS ORDERED: Heparin Sodium,Porcine/0.5 NS 500 ML IV SCH (19:00)
--- NOTE | 2024-05-15 19:28 | NUR ---
PT A&OX4 AT BASELINE AND MOST OF DAY TODAY. HERE FOR NEW ONSET RIGHT FOOT PAIN. IMAGING SHOWED ARTHRITIS OR GOUT WHICH IS NEW FOR THIS PT. THIS MORNING PT HAD A PERIOD OF AMS, ORIENTED TO SELF AND DATE, MD NOTIFIED AND FENTANYL DISCONTINUED. PT CONTINUED TO COMPLAIN OF10/10 PAIN IN HIS RIGHT FOOT THROUGHOUT SHIFT. AT 1700, PT WAS DIFFICULT TO AROUSE, BLOOD PRESSURE 97/53, PULSE BETWEEN 45-85, TEMP 99.3, PT WAS SWEATY AND CONFUSED ONCE AWAKE. NOTIFIED, NEW ORDERS PLACED. PT NOW ON TELE, MIDODRINE STARTED, LR ORDERED. ONE TIME DOSE OF TOREDOL GIVEN WITH GOOD EFFECT. COLCHESINE STARTED. PT NORMALLY ON ELOQUIS, STOPPED TODAY PER ORDER AND HEPARIN DRIP STARTED ONCE SECOND IV WAS SUCCESSFULLY PLACED. PT NOW A&OX4, COMFORTABLE IN BED, CALL LIGHT IN REACH.
[2024-05-15 19:31] VITALS: BP 97/53
[2024-05-15] MEDS ORDERED: Colchicine 0.6 MG TAB PO SCH (21:00)
[2024-05-16 01:42] LABS: BASOPHILS ABSOLUTE AUTO 0.03 K/mm3 (0.00-0.23); BASOPHILS PERCENT AUTO 0 % (0-2); EOSINOPHILS ABSOLUTE AUTO 0.32 K/mm3 (0.00-0.68); EOSINOPHILS PERCENT AUTO 4 % (0-6); Hemoglobin 9.7 g/dL (13.5-17.5); IMMATURE GRAN ABSOLUTE AUTO 0.07 K/mm3 (0.00-0.10); IMMATURE GRAN PERCENT AUTO 1 % (0-1); LYMPHOCYTES ABSOLUTE AUTO 1.42 K/mm3 (0.84-5.20); LYMPHOCYTES PERCENT AUTO 17 % (21-46); MONOCYTES ABSOLUTE AUTO 1.15 K/mm3 (0.16-1.47); MONOCYTES PERCENT AUTO 14 % (4-13); Mean Corpuscular HGB 29.2 pg (26.0-34.0); Mean Corpuscular HGB Conc 32.3 g/dL (31.5-36.5); Mean Corpuscular Volume 90 fL (80-100); Mean Platelet Volume 10.7 fL (9.1-12.4); NEUTROPHILS ABSOLUTE AUTO 5.21 K/mm3 (1.96-9.15); NEUTROPHILS PERCENT AUTO 64 % (41-73); Platelet Count 135 K/mm3 (150-400); RDW Standard Deviation 46.5 fL (35.1-46.3); Red Blood Cell Count 3.32 M/mm3 (4.30-5.90)
[2024-05-16 01:52] LABS: Albumin, Blood 3.1 g/dL (3.4-5.0); Albumin/Globulin Ratio 0.9 (0.8-1.8); Bilirubin, Total 0.6 mg/dL (0.1-1.0); Bun/Creatinine Ratio 24.2 (12.0-20.0); Calcium, Blood 8.6 mg/dL (8.5-10.1); Creatinine, Blood 1.32 mg/dL (0.60-1.20); Globulin, Blood 3.6 g/dL (2.2-4.0); Potassium, Blood 4.3 mmol/L (3.5-5.5); Total Protein, Blood 6.7 g/dL (6.4-8.2)
[2024-05-16] MEDS ORDERED: Dose Adjust by Pharmacy XX STA ×2 (02:03→23:26)
--- NOTE | 2024-05-16 03:22 | NUR ---
ACCOUNTS PAYABLE REPRESENTATIVE SUMMARY VSS. BP LOW NORMAL. ON HEPARIN DRIP - SEE MAR FOR DETAILS. ALERT AND OREINTED BUT OCCASIONALLY NOT RECEPTIVE TO PT CARE, VOICED IRRITATION WHEN NURSE CAME IN TO ADJUST TELE STICKERS. ON TELE, AV PACED AT 80. SOME DISCOMFORT OF RIGHT FOOT WHEN TOUCHED, RIGHT FOOT REDDENED AND SLIGHTLY SWOLLEN. CONTINENT - USES URINAL. HAS BEEN RSTING QUIETLY WITH FEW INTERRUPTIONS. ABLE TO REPOSITION SELF IN EBD WITHOUT ASSIST. CALL LIGHT IN REACH, RAILS UP X 2 AND BED IN LOW POSITION FOR SAFETY. WILL CONTINUE TO MONITOR
[2024-05-16 05:44] VITALS: BP 119/70
--- NOTE | 2024-05-16 06:23 | NUR ---
[employer] REPORTED INTERMITTENT RUNS OF T-TCH. PT ASYMPTOMATIC. NOTIFIED AND ORDERS FOR LABS: MAGNESIUM AND COMPREHENSIVE CHEM.
[2024-05-16 06:58] LABS: Albumin, Blood 3.1 g/dL (3.4-5.0); Albumin/Globulin Ratio 0.9 (0.8-1.8); Bilirubin, Total 0.7 mg/dL (0.1-1.0); Bun/Creatinine Ratio 26.2 (12.0-20.0); Creatinine, Blood 1.03 mg/dL (0.60-1.20); Globulin, Blood 3.5 g/dL (2.2-4.0); Magnesium, Blood 2.4 mg/dL (1.6-2.4); Total Protein, Blood 6.6 g/dL (6.4-8.2)
[2024-05-16 07:17] VITALS: BP 110/68
[2024-05-16] MEDS ORDERED: Allopurinol 100 MG Tab PO SCH (09:00)
[2024-05-16] MEDS ORDERED: Colchicine 0.6 MG TAB PO SCH (09:00)
[2024-05-16] MEDS ORDERED: Metoprolol Tartrate 25 MG Tab PO SCH (09:00)
[2024-05-16 10:46] VITALS: BP 103/65
[2024-05-16 11:25] VITALS: BP 110/61
--- NOTE | 2024-05-16 11:45 | NUR ---
SPOKE WITH DR GALVEZ ABOUT ORDERED METOPROLOL. PATIENT'S SBP IS BETWEEN 103-110. HR >100. METOPROLOL PARAMETERS STATE TO HOLD IF SBP IS <100. WILL CONTINUE TO MONITOR.
[2024-05-16 15:44] VITALS: BP 105/63
--- NOTE | 2024-05-16 16:00 | NUR ---
SHIFT SUMMARY A&OX4, FORGETFUL/CONFUSED AT TIMES. COOPERATIVE WITH CARE. AT BEDSIDE. NO ACUTE EVENTS THIS SHIFT. DENIES ANY CP/PRESSURE, HEADACHE, DIZZINESS, OR SOB. TELE REPORTS PATIENT HAVING MANY PVC'S AND RUNS OF SVT, HR >100 T/O SHIFT. METOPROLOL GIVEN PER ORDERS. HR UNAFFECTED. PATIENT ASYMPTOMATIC. LBM TODAY. PATIENT CURRENTLY RESTING IN BED. BED IN THE LOWEST POSITION. CALL LIGHT WITHIN REACH.
[2024-05-16 16:32] LABS: Vancomycin, Trough 10.1 ug/mL (5.0-10.0)
[2024-05-16] MEDS ORDERED: Vancomycin HCL 1,500 MG in NS 250 ML IV SCH (17:00)
[2024-05-16 19:33] VITALS: BP 99/60
[2024-05-17] VITALS (7 sets, daily range): BP systolic 88–127; BP diastolic 52–84
--- NOTE | 2024-05-17 04:29 | NUR ---
SHIFT SUMMARY PT A&Ox3 AND PLEASANT. MEDICATED FOR PAIN IN RIGHT FOOT T/O NIGHT. HEPARIN INFUSING AND MANAGED BY PHARMACY. RATE INCREASED TO 33.6ml/hr. EVENING METOPROLOL HELD D/T BP OF 99/60. PT REMAINS TACHY IN THE LOW 100'S ON TELE. PT SLEPT VERY LITTLE T/O NIGHT EVEN WITH TRAZODONE GIVEN AT HS. CONTINUING IV VANCOMYCIN. BED IN LOWEST POSITION AND CALL LIGHT IN REACH.
[2024-05-17 05:34] LABS: BASOPHILS ABSOLUTE AUTO 0.03 K/mm3 (0.00-0.23); BASOPHILS PERCENT AUTO 0 % (0-2); EOSINOPHILS PERCENT AUTO 5 % (0-6); Hematocrit 28.6 % (37.0-53.0); Hemoglobin 9.5 g/dL (13.5-17.5); IMMATURE GRAN ABSOLUTE AUTO 0.02 K/mm3 (0.00-0.10); IMMATURE GRAN PERCENT AUTO 0 % (0-1); LYMPHOCYTES ABSOLUTE AUTO 1.48 K/mm3 (0.84-5.20); LYMPHOCYTES PERCENT AUTO 19 % (21-46); MONOCYTES ABSOLUTE AUTO 0.93 K/mm3 (0.16-1.47); MONOCYTES PERCENT AUTO 12 % (4-13); Mean Corpuscular HGB 29.4 pg (26.0-34.0); Mean Corpuscular HGB Conc 33.2 g/dL (31.5-36.5); Mean Corpuscular Volume 89 fL (80-100); NEUTROPHILS PERCENT AUTO 63 % (41-73); Platelet Count 142 K/mm3 (150-400); RDW Coefficient Variation 14.1 % (11.7-14.2); RDW Standard Deviation 45.6 fL (35.1-46.3); Red Blood Cell Count 3.23 M/mm3 (4.30-5.90); White Blood Cell Count 7.66 K/mm3 (4.00-11.30)
[2024-05-17] MEDS ORDERED: Dose Adjust by Pharmacy XX STA ×3 (06:14→21:26)
[2024-05-17] MEDS ORDERED: Ampicillin Sod 2,000 MG in NS 100 ML IV SCH (12:00)
[2024-05-17] MEDS ORDERED: NS 250 ML IV PRN (12:15)
[2024-05-17] MEDS ORDERED: CefTRIAXone Sodium 2,000 MG in NS 100 ML IV SCH (16:14)
--- NOTE | 2024-05-17 16:56 | NUR ---
PT HAS BEEN AOX4 AND COOPERATIVE OF CARE. PT TREATED FOR R FOOT PAIN PER EMAR REDNESS IS MINIMAL AND MUCH IMPROVED PER PT. PT IS A STANDBY ASSIST AND DOING WELL. DUE TO HEPRIN DRIP PT HAD A PARTIAL BED BATH. ABLE TO MAKE ALL NEEDS KNOWN AND CALL LIGHT IS WITHIN REACH WILL CONTINUE TO MONITOR.
[2024-05-18] VITALS (7 sets, daily range): BP systolic 93–155; BP diastolic 61–91
[2024-05-18] MEDS ORDERED: OLANZapine 10 MG Vial IM ONE (01:40)
--- NOTE | 2024-05-18 03:00 | NUR ---
BOBBIN LOOSE END FINDER SUMMARY BP AND HR ELEVATED, OTHERWISE VSS - SEE DOCUMENTATION. INTERMITTENT AGITATION, RESTLESSNESS. MULTIPLE ATTEMPTS OOB, PULLING AT IV LINES AND TELE. ON HEPARIN DRIP. REDIRECTIONS GIVEN AND PT CONTINUED TO ESCALATE. MD NOTIFIED AND IM ZYPREXA ORDERED/GIVEN. INEFFECTIVE, MD NOTIFIED AND BILAT WRIST RESTRAINTS ORDRED/APPLIED. CONTINUE TO MONITOR. IV HEPARIN INFUSING, ANTIBIOTICS ADMIN -SEE MAR FOR MED DETAILS. FLUIDS OFFERED AND CARE GIVEN. CALL LIGHT IN REACH, RAILS UP X 3 AND BED IN LOW POSITION FOR SAFETY. WILL CONTINUE TO MONITOR/ASSESS AND PROVIDE CARE, WILL CONT TO ENCOURAGE SAFETY.
[2024-05-18 04:29] LABS: BASOPHILS ABSOLUTE AUTO 0.03 K/mm3 (0.00-0.23); BASOPHILS PERCENT AUTO 0 % (0-2); EOSINOPHILS ABSOLUTE AUTO 0.15 K/mm3 (0.00-0.68); EOSINOPHILS PERCENT AUTO 1 % (0-6); Hematocrit 29.9 % (37.0-53.0); IMMATURE GRAN ABSOLUTE AUTO 0.07 K/mm3 (0.00-0.10); IMMATURE GRAN PERCENT AUTO 1 % (0-1); LYMPHOCYTES ABSOLUTE AUTO 1.01 K/mm3 (0.84-5.20); LYMPHOCYTES PERCENT AUTO 10 % (21-46); MONOCYTES ABSOLUTE AUTO 1.14 K/mm3 (0.16-1.47); MONOCYTES PERCENT AUTO 11 % (4-13); Mean Corpuscular HGB 29.6 pg (26.0-34.0); Mean Corpuscular HGB Conc 33.4 g/dL (31.5-36.5); Mean Corpuscular Volume 89 fL (80-100); Mean Platelet Volume 10.2 fL (9.1-12.4); NEUTROPHILS ABSOLUTE AUTO 7.98 K/mm3 (1.96-9.15); NEUTROPHILS PERCENT AUTO 77 % (41-73); Platelet Count 154 K/mm3 (150-400); RDW Coefficient Variation 14.1 % (11.7-14.2); RDW Standard Deviation 45.1 fL (35.1-46.3); Red Blood Cell Count 3.38 M/mm3 (4.30-5.90); White Blood Cell Count 10.38 K/mm3 (4.00-11.30)
[2024-05-18 04:47] LABS: Bun/Creatinine Ratio 20.7 (12.0-20.0); Calcium, Blood 9.2 mg/dL (8.5-10.1); Creatinine, Blood 0.97 mg/dL (0.60-1.20); Potassium, Blood 4.4 mmol/L (3.5-5.5)
[2024-05-18] MEDS ORDERED: Clarify Drug Order XX ONE (05:15)
--- NOTE | 2024-05-18 06:30 | NUR ---
(EMILIANA), NOTIFIED OF POSITIVE BLD CULTURES, MD TO REVIEW CHART AND SEE IF ORDERS NEEDED
--- NOTE | 2024-05-18 06:48 | NUR ---
DARELL IN NUC MED TO DRAW BLOOD IN ABOUT HALF AN HOUR. WILL HAVE AM FOLLOW UP
[2024-05-18] MEDS ORDERED: Metoprolol Tartrate 25 MG Tab PO ONE (08:20)
--- NOTE | 2024-05-18 09:36 | NUR ---
PT STARTED SHIFT MORE CONFUSED, BUT WAS ABLE TO DC RESTRAINTS. PT WAS ABLE TO SAY WHY HE WAS HERE AND WHO HE WAS AND HIS . PT WAS SLOW TO ORIENT, BUT COOPERATIVE. MORNING HAS PROGRESSED PT HAS BECOME MORE CONFUSED AND NOT KNOWING WHERE HE IS OR WHY.DR GALVEZ WAS NOTIFIED AND SHE HAD HEPRIN STOPPED AND CT OF HEAD ORDERED. WBC TEST WAS STATED BY N[facility]LE[facility] MED AND THEY WILL TRY TO COMPLETE AROUND NOON. DR GALVEZ REQUESTED PT TO BE TRANSFERED TO PCU.
[2024-05-18] MEDS ORDERED: Diazepam 5 MG / ML 2ML SYR IV ONE ×2 (10:15→11:00)
--- NOTE | 2024-05-18 12:37 | NUR ---
PT TRANSFERED TO U 10 @1215 VIA BED. REPORT WAS GIVEN PRIOR TO TRANSFER. PT CONTINUES TO BE CONFUSED AND NOT KNOW WHAT IT GOING ON. WOULD NOT ALLOW ORAL TEMP TO BE PREFORMED. WAS AT BEDSIDE AND WENT WITH PT. PERSONAL BELONGINGS WHERE TRANFERED WELL.
[2024-05-18] MEDS ORDERED: FentaNYL Citrate 50 MCG/ML 2 ML Injection IV ONE (14:20)
--- NOTE | 2024-05-18 18:46 | NUR ---
COBRA TRANSFER NOTE TOOK OVER CARE FOR PT @ APPROX 1217 AFTER PT WAS TRANSFERRED FROM MEDICAL FLOOR DUE TO CHANGE IN MENTAL STATUS. WHEN PT FIRST ARRIVE THEY WERE SOMNULANT BUT ABLE TO BE AROUSED TO VERBAL AND PHYSICAL STIMULI, CALLING OUT WORDS, NOT HOLDING CONVERSTATION, BECOMING AGGITATED WITH STIMULI. LATER THIS SHIFT @ APPROX 1500 PT MENTAL STATUS IMPROVED, PT ALERT TO SELF ABLE TO STATE NAME AND , KNOWS , UNABLE TO ANSWER WHERE THEY ARE OR WHAT YEAR IT IS. LUNGS SOUND CLEAR T/O, PT ON 2L O2 VIA NC, SPO2 GREATER THAN 90%, PT DESATURATING DOWN TO 70 S WHILE SLEEPING, REPORTS PT DOES NOT WEAR CPAP. V PACED RHYTHM 100-110 S, BP STABLE WITH MAP GREATER THAN 65. PT SHOWING SIGNS OF PAIN, PAIN BEING ASSESSED VIA FLACC DUE TO ALTERED MENTAL STATUS, PT CALLS OUT WHEN RIGHT FOOT IS TOUCHED AND WHILE PT WAS MORE ORIENTED RIGHT FOOT PAIN WAS THE CHIEF COMPLAINT. AT BEDSIDE. PT WENT TO HEAD CT PRIOR TO COMING TO PCU. CARDIOLOGY ROUNDED ON PT THIS AFTERNOON. PT HAD WHITE CELL TAG PROCEDURE DONE BY [employer] THIS AFTERNOON AND WENT FOR SCAN SHORTLY AFTER. @ 1800 EMS ARRIVED TO TRANSPORT PT TO [facility] FOR REPLACEMENT OF PACEMAKER. REPORT GIVEN OVER PHONE TO [facility] NURSE RJ @ 1818
[2024-05-18] MEDS ORDERED: Metoprolol Tartrate 50 MG Tab PO SCH (21:00)
== END 2024-05-18 18:05 | disposition short-term general hospital (02) | DRG 314 ==
LOC: ER 15:32 → MEDS 18:57 → PCU 05-18 12:11
PROVIDERS: Emergency Medicine; Internal Medicine; Nurse Practitioner Acute Care; Student in an Organized Health Care Education/Training Program; ADMIT Internal Medicine
DX: T82.7XXA Infection and inflammatory reaction due to other cardiac and vascular devices, implants and grafts, initial encounter (principal); G92.8 Other toxic encephalopathy; I33.0 Acute and subacute infective endocarditis; L03.115 Cellulitis of right lower limb; I48.92 Unspecified atrial flutter; I50.42 Chronic combined systolic (congestive) and diastolic (congestive) heart failure; Z66 Do not resuscitate; Z78.1 Physical restraint status; B95.2 Enterococcus as the cause of diseases classified elsewhere; I48.91 Unspecified atrial fibrillation; K21.9 Gastro-esophageal reflux disease without esophagitis; I11.0 Hypertensive heart disease with heart failure; I27.20 Pulmonary hypertension, unspecified; R41.0 Disorientation, unspecified; M10.9 Gout, unspecified; M19.071 Primary osteoarthritis, right ankle and foot; E78.5 Hyperlipidemia, unspecified; Z96.643 Presence of artificial hip joint, bilateral; Z96.653 Presence of artificial knee joint, bilateral; Z95.0 Presence of cardiac pacemaker; Z98.890 Other specified postprocedural states; Z79.82 Long term (current) use of aspirin; Z79.899 Other long term (current) drug therapy; Z79.891 Long term (current) use of opiate analgesic; Z79.01 Long term (current) use of anticoagulants; Z88.4 Allergy status to anesthetic agent; Z95.2 Presence of prosthetic heart valve; Y71.8 Miscellaneous cardiovascular devices associated with adverse incidents, not elsewhere classified
CPT/HCPCS: 36415; 70450; 71046; 73630; 73700; 76705; 78802; 80048; 80053; 80202; 82140; 82977; 83735; 84145; 84550; 85025; 85520; 85610; 85651; 85730; 86140; 87040; 87077; 87186; 93308; 93321; 96365; 96366; 96375; 99284-25; A9270; A9569; C1751; J0290; J0696; J1644; J1885; J2270; J2405; J3010; J3360; J3370; J7040; J7050

== ENCOUNTER → 2024-05-14 | Outpatient (CLI) | payer MEDICARE, BC ==
[2024-05-14 14:38] LABS: BASOPHILS ABSOLUTE AUTO 0.02 K/mm3 (0.00-0.23); BASOPHILS PERCENT AUTO 0 % (0-2); EOSINOPHILS ABSOLUTE AUTO 0.14 K/mm3 (0.00-0.68); EOSINOPHILS PERCENT AUTO 2 % (0-6); Hematocrit 33.4 % (37.0-53.0); Hemoglobin 10.8 g/dL (13.5-17.5); IMMATURE GRAN ABSOLUTE AUTO 0.04 K/mm3 (0.00-0.10); IMMATURE GRAN PERCENT AUTO 0 % (0-1); LYMPHOCYTES ABSOLUTE AUTO 1.22 K/mm3 (0.84-5.20); LYMPHOCYTES PERCENT AUTO 13 % (21-46); MONOCYTES ABSOLUTE AUTO 1.38 K/mm3 (0.16-1.47); MONOCYTES PERCENT AUTO 15 % (4-13); Mean Corpuscular HGB 29.1 pg (26.0-34.0); Mean Corpuscular HGB Conc 32.3 g/dL (31.5-36.5); Mean Corpuscular Volume 90 fL (80-100); NEUTROPHILS PERCENT AUTO 71 % (41-73); Platelet Count 132 K/mm3 (150-400); RDW Coefficient Variation 14.4 % (11.7-14.2); RDW Standard Deviation 46.6 fL (35.1-46.3); Red Blood Cell Count 3.71 M/mm3 (4.30-5.90)
[2024-05-14 14:50] LABS: Albumin, Blood 3.9 g/dL (3.4-5.0); Albumin/Globulin Ratio 0.9 (0.8-1.8); Bilirubin, Total 0.7 mg/dL (0.1-1.0); Calcium, Blood 9.4 mg/dL (8.5-10.1); Creatinine, Blood 1.19 mg/dL (0.60-1.20); Globulin, Blood 4.2 g/dL (2.2-4.0); Potassium, Blood 4.9 mmol/L (3.5-5.5); Total Protein, Blood 8.1 g/dL (6.4-8.2); Uric Acid, Blood 4.2 mg/dL (3.5-7.2)
== END ==
LOC: LAB SHORT 14:34
PROVIDERS: Emergency Medicine
DX: M79.671 Pain in right foot (principal); R50.9 Fever, unspecified
CPT/HCPCS: 80053; 84550; 85025

== ENCOUNTER 2024-07-28 12:04 | Emergency (ER) | payer MEDICARE, BC ==
[~2024-07-28] VITALS: Ht 170.2 cm; Wt 82.5 kg
[2024-07-28 12:52] LABS: BASOPHILS ABSOLUTE AUTO 0.04 K/mm3 (0.00-0.23); BASOPHILS PERCENT AUTO 1 % (0-2); EOSINOPHILS PERCENT AUTO 0 % (0-6); Hematocrit 26.9 % (37.0-53.0); Hemoglobin 8.4 g/dL (13.5-17.5); IMMATURE GRAN ABSOLUTE AUTO 0.03 K/mm3 (0.00-0.10); IMMATURE GRAN PERCENT AUTO 0 % (0-1); LYMPHOCYTES ABSOLUTE AUTO 1.07 K/mm3 (0.84-5.20); LYMPHOCYTES PERCENT AUTO 14 % (21-46); MONOCYTES ABSOLUTE AUTO 1.28 K/mm3 (0.16-1.47); MONOCYTES PERCENT AUTO 17 % (4-13); Mean Corpuscular HGB 26.8 pg (26.0-34.0); Mean Corpuscular HGB Conc 31.2 g/dL (31.5-36.5); Mean Corpuscular Volume 86 fL (80-100); NEUTROPHILS PERCENT AUTO 68 % (41-73); Platelet Count 104 K/mm3 (150-400); RDW Coefficient Variation 17.2 % (11.7-14.2); RDW Standard Deviation 51.7 fL (35.1-46.3); Red Blood Cell Count 3.13 M/mm3 (4.30-5.90); White Blood Cell Count 7.52 K/mm3 (4.00-11.30)
[2024-07-28 13:13] LABS: Albumin, Blood 3.8 g/dL (3.4-5.0); Albumin/Globulin Ratio 1.2 (0.8-1.8); Bilirubin, Total 1.3 mg/dL (0.1-1.0); Bun/Creatinine Ratio 28.5 (12.0-20.0); Calcium, Blood 9.3 mg/dL (8.5-10.1); Creatinine, Blood 1.44 mg/dL (0.60-1.20); Globulin, Blood 3.3 g/dL (2.2-4.0); Potassium, Blood 4.2 mmol/L (3.5-5.5); Total Protein, Blood 7.1 g/dL (6.4-8.2)
[2024-07-28 15:34] VITALS: BP 123/62
== END 2024-07-28 15:35 | disposition home or self-care (01) ==
LOC: ER 12:04
PROVIDERS: Physician Assistant
DX: D64.9 Anemia, unspecified (principal)
CPT/HCPCS: 71046; 80053; 84484; 85025

== ENCOUNTER 2024-08-06 04:06 | Inpatient (IN) | payer OTHER, MEDICARE, BC ==
[~2024-08-06] VITALS: Ht 170.2 cm; Wt 87.8 kg
[2024-08-06 05:02] LABS: BASOPHILS ABSOLUTE AUTO 0.04 K/mm3 (0.00-0.23); BASOPHILS PERCENT AUTO 1 % (0-2); EOSINOPHILS PERCENT AUTO 0 % (0-6); Hematocrit 26.2 % (37.0-53.0); Hemoglobin 7.9 g/dL (13.5-17.5); IMMATURE GRAN ABSOLUTE AUTO 0.06 K/mm3 (0.00-0.10); IMMATURE GRAN PERCENT AUTO 1 % (0-1); LYMPHOCYTES ABSOLUTE AUTO 1.02 K/mm3 (0.84-5.20); LYMPHOCYTES PERCENT AUTO 14 % (21-46); MONOCYTES ABSOLUTE AUTO 0.96 K/mm3 (0.16-1.47); MONOCYTES PERCENT AUTO 13 % (4-13); Mean Corpuscular HGB Conc 30.2 g/dL (31.5-36.5); Mean Corpuscular Volume 86 fL (80-100); Mean Platelet Volume 11.2 fL (9.1-12.4); NEUTROPHILS ABSOLUTE AUTO 5.46 K/mm3 (1.96-9.15); NEUTROPHILS PERCENT AUTO 73 % (41-73); NRBC ABSOLUTE 0.04 K/mm3 (0.00-0.02); NRBC Auto 0.5 /100 WBC (0.0-0.2); Platelet Count 124 K/mm3 (150-400); RDW Coefficient Variation 17.8 % (11.7-14.2); RDW Standard Deviation 55.2 fL (35.1-46.3); Red Blood Cell Count 3.04 M/mm3 (4.30-5.90); White Blood Cell Count 7.54 K/mm3 (4.00-11.30)
[2024-08-06 05:32] LABS: Bun/Creatinine Ratio 23.6 (12.0-20.0); Calcium, Blood 8.5 mg/dL (8.5-10.1); Creatinine, Blood 1.95 mg/dL (0.60-1.20); Potassium, Blood 4.1 mmol/L (3.5-5.5)
[2024-08-06] MEDS ORDERED: Magnesium Sulf 2 GM/Water 50ML 50 ML IV ONE (05:40)
[2024-08-06] MEDS ORDERED: Diphth,Pertuss(Acell),Tet Vac 0.5 ML VIAL IM ONE (06:10)
[2024-08-06] MEDS ORDERED: NS 1,000 ML IV SCH ×3 (06:10→15:55)
[2024-08-06] MEDS ORDERED: LORazepam 2 MG/ML 1ML Injection IV ONE (06:10)
[2024-08-06] MEDS ORDERED: Ondansetron HCl 2 MG / ML 2ML Vial IV PRN (06:15)
[2024-08-06] MEDS ORDERED: FLU VACC TS2024-25(6MOS UP)/PF 45 MCG/0.5 ML SYRINGE IM ONE (06:15)
[2024-08-06] MEDS ORDERED: Enoxaparin 30 MG/0.3 ML SYR SC SCH (09:00)
[2024-08-06] MEDS ORDERED: Amoxicillin500 MG PO (11:20)
[2024-08-06] MEDS ORDERED: ALLOPURINOL100 M1 PO (11:20)
[2024-08-06] MEDS ORDERED: Acetaminophen 500 MG Tab PO ONE (11:25)
[2024-08-06] MEDS ORDERED: TraZODone HCl 50 MG Tab PO PRN (12:55)
[2024-08-06] MEDS ORDERED: Allopurinol 100 MG Tab PO SCH (13:00)
[2024-08-06 13:43] LABS: Source, Urine Clean Catch
[2024-08-06 13:46] LABS: Appearance, Urine Clear (Clear); Bilirubin, Urine Neg (Neg); Blood, Urine Neg (Neg); Color, Urine Yellow (P-Yellow); Glucose Qualitative, Urine Neg (Neg); Ketones, Urine Neg (Neg); Leukocyte Esterase, Urine Neg (Neg); Nitrite, Urine Neg (Neg); Protein, Urine 2+ (Neg); Urobilinogen, Urine NORM (Normal)
[2024-08-06 14:00] LABS: Bacteria Rare /hpf; Red Blood Cells, Urine Not Seen /hpf (0-2); Squamous Epithelial Cells Rare /hpf (Few); White Blood Cells, Urine 0-2 /hpf (0-5)
[2024-08-06] MEDS ORDERED: Oxymetazoline 0.05% Nasal Relief Spray 15mL BTL PRN (14:50)
[2024-08-06 14:57] VITALS: BP 103/64
[2024-08-06] MEDS ORDERED: Amoxicillin 500 MG Cap PO SCH (15:06)
[2024-08-06 16:07] VITALS: BP 145/69
[2024-08-06] MEDS ORDERED: Carvedilol 6.25 MG Tab PO SCH (17:00)
--- NOTE | 2024-08-06 18:33 | NUR ---
ADMISSION NOTE/SHIFT NOTE MR BROWN WAS ADMITTED TO THE MEDICAL FLOOR FROM ER AT 1454HRS. TRANSFERED VIA W/C AND TRANSFERED WITH SLIGHTLY UNSTEADY GAIT. ACCOMPANIED BY AND DAUGHTER. PT HAS MUMBLED SPEACH THAT IS NOT NEW PER . HE IS ORIENTATED X4 BUT HAS HESITATION AND HAS TO THINK ABOUT HIS ANSWERS. HIS SAID THAT HE SOMETIMES GETS "ANTSY" WHEN HE'S IN THE HOSPITAL, RESTLESS AND PULLS AT LINES. BED ALARM ON, PT EDUCATED MANUFACTURING DEVELOPMENT ENGINEER LIGHT AND FALL PRECAUTIONS. HE WALKED INTO THE BATHROOM WITH WALKER AND GAIT BELT AND 1 PERSON ASSISTANCE. HE WALKS WITH A CANE AT HOME BUT WHEN HE WALKED WITH A CANE HERE HE REACHED OUT WITH HIS OTHER HAND FOR FURNITURE AND WAS SAFER WITH A WALKER. HE REPORTS EYE LENS SURGERY AND THAT HE HAS HAD SOME BLURRED VISION SINCE HIS FALL THIS MORNING. TELEMETRY ON, V-PACED ~90BPM. DEVISE INTEROGATED IN ER PRIOR TO TRANSFER. STARTED ON IVF AT 75CC/HR. HE SAID HE HAS NOT VOIDED A LOT TODAY AND HIS REPORTS 1 LB/DAY WEIGHT GAIN MOSTLY ABDOMINAL FLUID OVER THE LAST MONTH. HE VOIDED 350CC SINCE ADMISSION AND BLADDER SCAN POST VOID WAS ONLY 20CC. HE LIVES WITH HIS , DAUGHTERS LIVE CLOSE BY. HE REPORTS BEING INDEPENDENT OF ADLS AT HOME AND HAS HOME HEALTH CARE 1X/WEEK. ECHO DONE SINCE ADMISSION. GOOD APPETITE. BED LOW, CALL LIGHT IN REACH, BED ALARM ON.
[2024-08-06 19:36] VITALS: BP 106/67
[2024-08-06] MEDS ORDERED: Apixaban 5 MG Tab PO SCH (21:00)
[2024-08-06] MEDS ORDERED: Lactobacil 2-S.Thermo-Bifido 1 1 Cap PO SCH (21:00)
[2024-08-06] MEDS ORDERED: Docusate Sodium 100 MG Cap PO SCH (21:00)
[2024-08-06] MEDS ORDERED: Nystatin/Triamcinolone Ointment 15 GM TOP SCH (21:00)
[2024-08-06] MEDS ORDERED: Sennosides 8.6 MG Tab PO SCH (21:00)
[2024-08-06] MEDS ORDERED: Acetaminophen 325 MG TABLET PO PRN (22:10)
[2024-08-07] VITALS (8 sets, daily range): BP systolic 103–138; BP diastolic 62–80
[2024-08-07] MEDS ORDERED: Furosemide 10 MG/ML 4ML Vial IV ONE (02:10)
[2024-08-07] MEDS ORDERED: Omeprazole 20 MG CapCR PO SCH (06:00)
[2024-08-07 06:16] LABS: BASOPHILS ABSOLUTE AUTO 0.03 K/mm3 (0.00-0.23); BASOPHILS PERCENT AUTO 0 % (0-2); EOSINOPHILS PERCENT AUTO 0 % (0-6); Hematocrit 25.9 % (37.0-53.0); Hemoglobin 7.7 g/dL (13.5-17.5); IMMATURE GRAN ABSOLUTE AUTO 0.03 K/mm3 (0.00-0.10); IMMATURE GRAN PERCENT AUTO 0 % (0-1); LYMPHOCYTES PERCENT AUTO 15 % (21-46); MONOCYTES ABSOLUTE AUTO 1.15 K/mm3 (0.16-1.47); MONOCYTES PERCENT AUTO 16 % (4-13); Mean Corpuscular HGB 25.7 pg (26.0-34.0); Mean Corpuscular HGB Conc 29.7 g/dL (31.5-36.5); Mean Corpuscular Volume 86 fL (80-100); NEUTROPHILS PERCENT AUTO 68 % (41-73); NRBC ABSOLUTE 0.03 K/mm3 (0.00-0.02); NRBC Auto 0.4 /100 WBC (0.0-0.2); Platelet Count 113 K/mm3 (150-400); RDW Coefficient Variation 17.9 % (11.7-14.2); RDW Standard Deviation 55.4 fL (35.1-46.3); White Blood Cell Count 7.21 K/mm3 (4.00-11.30)
--- NOTE | 2024-08-07 06:27 | NUR ---
SHIFT SUMMARY PT A&Ox3. PT C/O MILD HEAD PAIN AND MEDICATED PER EMAR. ICE PACK ALSO APPLIED TO HEAD. PT DESATED DOWN TO MID 80'S DURING SLEEP SO PLACED ON 2L OF OXYGEN. PT ALSO C/O FEELING SOB AND PRESENTED WITH LABORED BREATHING. PT SAT UP IN BED. RT CALLED. SOME CRACKLES NOTED IN BASE OF LUNGS. INPATIENT SERVICES RN ALSO REPORTED SOME ST ELEVATION. DR CALLED AND ORDER GIVEN TO STOP FLUIDS, AND GIVE 40ML OF LASIX ONE TIME. ECG COMPLETED AND MAGNESIUM LAB DRAW FOR MORNING. PT DENIED CP. SOB IMPROVED AFTER INTERVENTIONS. PT RESTLESS T/O NIGHT, PULLING OFF TELE, GOWN, AND COVERS. VSS. PT IMPULSIVE, BED ALARM ON. BED IN LOWEST POSITION AND CALL LIGHT IN REACH.
[2024-08-07 06:50] LABS: Magnesium, Blood 3.1 mg/dL (1.6-2.4)
[2024-08-07 06:51] LABS: Albumin, Blood 3.7 g/dL (3.4-5.0); Albumin/Globulin Ratio 1.2 (0.8-1.8); Bilirubin, Total 1.6 mg/dL (0.1-1.0); Bun/Creatinine Ratio 28.1 (12.0-20.0); Calcium, Blood 8.6 mg/dL (8.5-10.1); Creatinine, Blood 1.6 mg/dL (0.60-1.20); Potassium, Blood 3.9 mmol/L (3.5-5.5); Total Protein, Blood 6.7 g/dL (6.4-8.2)
[2024-08-07] MEDS ORDERED: Atorvastatin 40 MG Tab PO SCH (09:00)
[2024-08-07] MEDS ORDERED: Empagliflozin 25 MG TAB PO SCH (09:00)
--- NOTE | 2024-08-07 15:12 | NUR ---
SHIFT SUMMARY MR BORWN IS ORIENTATED TO SELF, PLACE, DATE AND SITUATION BUT DOES HAVE SOME HESITANCY BEFORE ANSWERING QUESTIONS, PAUSES TO THINK OUT THE ANSWER. HIS IS AT THE BEDSIDE AND PT HAS BEEN LESS "ANTSY" WITH HER BY HIS SIDE. HE IS FORGETFUL AND GETS UP OUT OF BED/CHAIR WITHOUT CALLING ON OCCASION. HE WALKED IN THE HALLS WITH P.T. AND AGAIN WITH RN THIS AFTERNOON, STEADY GAIT WITH GAITBELT AND FWW. VOIDED [id number] CC THIS AM, NO UOP SINCE, PLAN BLADDER SCAN IF UNABLE TO VOID. MILD SOB AFTER WALKING IN HALLS, PULSE OX WAS 96% ON ROOM AIR. V PACED ON TELEMETRY, STILL WITH ST ELEVATION PER LEASING DIRECTOR. PT CONTINUES TO HAVE SOME BLURRED VISION. BED AND CHAIR ALARMS IN USE. CALL LIGHT IN REACH.
[2024-08-08 03:50] VITALS: BP 123/70
--- NOTE | 2024-08-08 04:14 | NUR ---
EMS DIRECTOR SUMMARY: PT ADMITTED S/P FALL AND LAC TO RIGHT EYE WITH SUTURES COURSE DEVELOPER. FULL CODE. A&O X3-4. DELAY WITH ANSWERING ORIENTATION QUESTIONS. PT FORGETFUL AND IMPULSIVE WITH GETTING UP OOB. BED ALARM ON. USES CALL LIGHT AT TIMES. PT NOTED TO HAVE SOME SOB AND WHEEZING AND DIFFICULTY FORMING A SENTENCE WHEN AMBULATING TO BATHROOM AND THEN TO BSC. SUPPLEMENTAL OXYGEN PLACED AT 2L VIA NC FOR COMFORT. SOB RESIDED ONCE PT BACK TO BED. NO FURHTER EVENTS NOTED. PT INDEPENDENT WITH BED MOBILITY. CALL LIGHT IN REACH. CARES CONTINUE ORDERED.
[2024-08-08 05:50] LABS: Bun/Creatinine Ratio 32.9 (12.0-20.0); Calcium, Blood 8.5 mg/dL (8.5-10.1); Creatinine, Blood 1.49 mg/dL (0.60-1.20); Potassium, Blood 4.1 mmol/L (3.5-5.5)
[2024-08-08 07:16] VITALS: BP 120/75
--- NOTE | 2024-08-08 12:51 | NUR ---
Spiritual care visit conducted. Patient is lying in bed and alert. His spouse, Monica is bedside. 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 They share about their differing spiritual beliefs. Monica has strong Zoroastrianism beliefs and the patient has limited belief that there is a God. She voices her concerns for the patient. He is calm about it and seems to indicate that he has more belief than he is willing to admit to Jeisonophelia. 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 They live in a mobile home on their dtr's property. I, after having the patient 's approval, provided prayer and spent quite some time offering therapeutic listening. They both responded well and showed signs of added peace. I will continue to remain available to the patient and family.
--- NOTE | 2024-08-08 13:35 | NUR ---
SPEECH THERAPY IN FOR EVALUATION AND NOTED SWELLING/MASS TO LEFT ANTERIOR NECK. THIS RN UPDATED PROVIDER VIA PHONE CALL RE FINDINGS AND SPEECH THERAPY CONCERN IF THIS MAY LEAD TO DIFFICULTY SWALLOWING OR OBSTRUCTION OF AIRWAY IF LEFT UNTREATED/UNDIAGNOSISED. NO NEW ORDERS AT THIS TIME. THIS RN UPDATED PT AND PT SPOUSE THAT PROVIDER WAS INFORMED.
[2024-08-08 14:23] VITALS: BP 116/56
[2024-08-08 15:18] VITALS: BP 144/77
[2024-08-08 19:22] VITALS: BP 127/75
--- NOTE | 2024-08-08 19:26 | NUR ---
SHIFT SUMMARY VSS, PT DENIES PAIN, USES CALL LIGHT APPROPRIATELY. TELE IN PLACE - NO EVENTS. PT REMAINA SOB WITH LABORED BREATHING WITH SPO2 LEVELS REMAINING ABOVE 92%. SPOUSE AND PT REPORT ABD DISTENTION NEW, PROVIDER UPDATED AND ABD ULTRASOUND COMPLETED. RN ALSO NOTIFIED PROVIDER OF MASS ON LEFT SIDE OF NECK, NO NEW ORDERS PROVIDED WHEN THIS RN INFORMED. SPEECH EVAL COMPLETED AND ORDERS PLACED. PT EAGER TO GO HOME BUT SPOUSE AND PT AGREE PT IS NOT BACK TO BASELINE AND WOULD LIKE MORE TESTING DONE. PT DOES HAVE FOLLOW UP WITH PCP FOR Thursday08/11/24. PT CURRENTLY RESTING IN HOSPITAL BED WITH BED IN LOWEST POSITION AND CALL LIGHT WITHIN REACH. PT APPEARS IN NO ACUTE DISTRESS.
[2024-08-08] MEDS ORDERED: Apixaban 5 MG Tab PO SCH (21:00)
[2024-08-09 02:25] VITALS: BP 122/80
--- NOTE | 2024-08-09 05:56 | NUR ---
SHIFT SUMMARY PATIENT IS ALERT BUT NOT ORIENTED. PATIENT HAS HAD NO ACUTE EVENTS THIS SHIFT. VITAL SIGNS REVIEWED. PATIENT HAS HAD NO EVENTS ON TELE. TELE DCD. PATIENT HAS DENIED PAIN, SOB, VOMITTING OR NAUSEA. PATIENT HAS HAD SEVERAL BM THIS SHIFT. BED IN LOCKED AND LOWEST POSITION. CALL LIGHT IN PLACE.
[2024-08-09 07:51] VITALS: BP 124/92
[2024-08-09 08:17] VITALS: BP 114/73
--- NOTE | 2024-08-09 13:32 | NUR ---
DISCHARGE SUMMARY PT DISCHARGED HOME WITH HOME HEALTH ON 08/09/24 @ 1320. IV REMOVED, CATHETER TIP INTACT AND SITE APPEARS WNL. DICHARGE PACKET REVIEWED WITH PT AND PT SPOUSE. NO NEW MEDICATION ORDERS. PT HAS APPOINTMENT WITH PCP ON 08/11/24 FOR FOLLOW UP. PT TAKEN DOWN TO PERSONAL VEHICLE BY RN VIA WC, PT ABLE TO STAND AND AMBULATE WITH CANE TO CAR.
== END 2024-08-09 13:31 | disposition home health service (06) | DRG 683 ==
LOC: ER 04:06 → ERHOLD 04:07 → MEDS 14:56
PROVIDERS: Internal Medicine; Student in an Organized Health Care Education/Training Program; ADMIT Internal Medicine
PROC: 0HQ1XZZ Repair Face Skin, External Approach (ICD-10-PCS; principal; 2024-08-06)
DX: N17.9 Acute kidney failure, unspecified (principal); I13.0 Hypertensive heart and chronic kidney disease with heart failure and stage 1 through stage 4 chronic kidney disease, or unspecified chronic kidney disease; I50.22 Chronic systolic (congestive) heart failure; I47.20 Ventricular tachycardia, unspecified; I48.91 Unspecified atrial fibrillation; S01.111A Laceration without foreign body of right eyelid and periocular area, initial encounter; I27.20 Pulmonary hypertension, unspecified; S01.21XA Laceration without foreign body of nose, initial encounter; R14.0 Abdominal distension (gaseous); R53.81 Other malaise; N18.30 Chronic kidney disease, stage 3 unspecified; R13.10 Dysphagia, unspecified; M10.9 Gout, unspecified; Z96.642 Presence of left artificial hip joint; K21.9 Gastro-esophageal reflux disease without esophagitis; D63.1 Anemia in chronic kidney disease; D69.6 Thrombocytopenia, unspecified; Z79.01 Long term (current) use of anticoagulants; Z88.8 Allergy status to other drugs, medicaments and biological substances; Z79.82 Long term (current) use of aspirin; Z79.899 Other long term (current) drug therapy; Z95.0 Presence of cardiac pacemaker; Z95.2 Presence of prosthetic heart valve; Z98.1 Arthrodesis status; W01.198A Fall on same level from slipping, tripping and stumbling with subsequent striking against other object, initial encounter; Y92.009 Unspecified place in unspecified non-institutional (private) residence as the place of occurrence of the external cause; Z28.21 Immunization not carried out because of patient refusal
CPT/HCPCS: 12011; 36415; 70450; 70486; 70490; 71045; 71250; 72125; 76705; 76857; 80048; 80053; 81001; 82947; 83735; 83880; 84484; 85025; 90471; 90715; 92610; 93005; 93010; 93308; 93321; 94760; 96365-59; 96375; 96375-59; 97110; 97116; 97161; 99285-25; A9270; G0378; J1940; J2060; J3475; J7030

== ENCOUNTER 2024-08-20 20:59 | Emergency (ER) | payer MEDICARE, BC ==
[~2024-08-20] VITALS: Ht 170.2 cm; Wt 93.9 kg
[~2024-08-20 20:59] MED LIST changes: +ALLOPURINOL100 M1 PO; +Amoxicillin500 MG PO
[2024-08-20 21:26] LABS: BASOPHILS ABSOLUTE AUTO 0.05 K/mm3 (0.00-0.23); BASOPHILS PERCENT AUTO 1 % (0-2); EOSINOPHILS ABSOLUTE AUTO 0.04 K/mm3 (0.00-0.68); EOSINOPHILS PERCENT AUTO 0 % (0-6); Hematocrit 30.4 % (37.0-53.0); Hemoglobin 8.8 g/dL (13.5-17.5); IMMATURE GRAN ABSOLUTE AUTO 0.07 K/mm3 (0.00-0.10); IMMATURE GRAN PERCENT AUTO 1 % (0-1); LYMPHOCYTES ABSOLUTE AUTO 1.22 K/mm3 (0.84-5.20); LYMPHOCYTES PERCENT AUTO 13 % (21-46); MONOCYTES ABSOLUTE AUTO 1.33 K/mm3 (0.16-1.47); MONOCYTES PERCENT AUTO 15 % (4-13); Mean Corpuscular HGB 25.5 pg (26.0-34.0); Mean Corpuscular HGB Conc 28.9 g/dL (31.5-36.5); Mean Corpuscular Volume 88 fL (80-100); NEUTROPHILS ABSOLUTE AUTO 6.41 K/mm3 (1.96-9.15); NEUTROPHILS PERCENT AUTO 70 % (41-73); Platelet Count 105 K/mm3 (150-400); RDW Coefficient Variation 19.9 % (11.7-14.2); RDW Standard Deviation 60.5 fL (35.1-46.3); Red Blood Cell Count 3.45 M/mm3 (4.30-5.90); White Blood Cell Count 9.12 K/mm3 (4.00-11.30)
[2024-08-20 21:35] LABS: Albumin, Blood 3.8 g/dL (3.4-5.0); Albumin/Globulin Ratio 1.3 (0.8-1.8); Bilirubin, Total 1.3 mg/dL (0.1-1.0); Bun/Creatinine Ratio 27.6 (12.0-20.0); Calcium, Blood 8.6 mg/dL (8.5-10.1); Creatinine, Blood 1.81 mg/dL (0.60-1.20); Magnesium, Blood 2.8 mg/dL (1.6-2.4); Potassium, Blood 4.7 mmol/L (3.5-5.5); Total Protein, Blood 6.8 g/dL (6.4-8.2)
[2024-08-20] MEDS ORDERED: Furosemide 10 MG/ML 4ML Vial IV ONE (22:10)
[2024-08-20 22:30] VITALS: BP 135/67
== END 2024-08-20 23:00 | disposition home or self-care (01) ==
LOC: ER 20:59
PROVIDERS: Emergency Medicine
DX: I13.0 Hypertensive heart and chronic kidney disease with heart failure and stage 1 through stage 4 chronic kidney disease, or unspecified chronic kidney disease (principal); I50.9 Heart failure, unspecified; N18.9 Chronic kidney disease, unspecified; I48.91 Unspecified atrial fibrillation; K21.9 Gastro-esophageal reflux disease without esophagitis; Z88.4 Allergy status to anesthetic agent; Z79.2 Long term (current) use of antibiotics; Z79.01 Long term (current) use of anticoagulants; Z79.1 Long term (current) use of non-steroidal anti-inflammatories (NSAID); Z79.899 Other long term (current) drug therapy
CPT/HCPCS: 71045; 80053; 83735; 85025; 93005; 93010; 96374; 99285-25; J1940

== ENCOUNTER 2024-08-21 14:37 | Emergency (ER) | payer MEDICARE, BC ==
[~2024-08-21] VITALS: Ht 170.2 cm; Wt 93.0 kg
[~2024-08-21 14:37] MED LIST changes: -TRAZ50 PO
[2024-08-21 15:58] LABS: BASOPHILS ABSOLUTE AUTO 0.06 K/mm3 (0.00-0.23); BASOPHILS PERCENT AUTO 1 % (0-2); EOSINOPHILS ABSOLUTE AUTO 0.02 K/mm3 (0.00-0.68); EOSINOPHILS PERCENT AUTO 0 % (0-6); Hematocrit 26.7 % (37.0-53.0); IMMATURE GRAN ABSOLUTE AUTO 0.05 K/mm3 (0.00-0.10); IMMATURE GRAN PERCENT AUTO 1 % (0-1); LYMPHOCYTES PERCENT AUTO 11 % (21-46); MONOCYTES ABSOLUTE AUTO 1.26 K/mm3 (0.16-1.47); MONOCYTES PERCENT AUTO 15 % (4-13); Mean Corpuscular HGB 25.9 pg (26.0-34.0); Mean Corpuscular Volume 86 fL (80-100); NEUTROPHILS ABSOLUTE AUTO 6.12 K/mm3 (1.96-9.15); NEUTROPHILS PERCENT AUTO 73 % (41-73); NRBC ABSOLUTE 0.02 K/mm3 (0.00-0.02); NRBC Auto 0.2 /100 WBC (0.0-0.2); Platelet Count 95 K/mm3 (150-400); RDW Coefficient Variation 20.7 % (11.7-14.2); RDW Standard Deviation 60.2 fL (35.1-46.3); Red Blood Cell Count 3.09 M/mm3 (4.30-5.90); White Blood Cell Count 8.41 K/mm3 (4.00-11.30)
[2024-08-21 16:14] LABS: Albumin, Blood 3.6 g/dL (3.4-5.0); Albumin/Globulin Ratio 1.3 (0.8-1.8); Bilirubin, Total 1.4 mg/dL (0.1-1.0); Bun/Creatinine Ratio 27.8 (12.0-20.0); Calcium, Blood 8.5 mg/dL (8.5-10.1); Creatinine, Blood 1.69 mg/dL (0.60-1.20); Globulin, Blood 2.8 g/dL (2.2-4.0); Potassium, Blood 4.2 mmol/L (3.5-5.5); Total Protein, Blood 6.4 g/dL (6.4-8.2)
[2024-08-21 18:45] VITALS: BP 120/73
== END 2024-08-21 19:03 | disposition home or self-care (01) ==
LOC: ER 14:37
PROVIDERS: Student in an Organized Health Care Education/Training Program
DX: I11.0 Hypertensive heart disease with heart failure (principal); I50.9 Heart failure, unspecified; K21.9 Gastro-esophageal reflux disease without esophagitis; I48.91 Unspecified atrial fibrillation; Z88.4 Allergy status to anesthetic agent; Z79.899 Other long term (current) drug therapy; Z79.84 Long term (current) use of oral hypoglycemic drugs; Z79.01 Long term (current) use of anticoagulants; Z79.83 Long term (current) use of bisphosphonates; Z79.2 Long term (current) use of antibiotics
CPT/HCPCS: 80053; 83880; 84484; 85025; 93005; 93010; 99284-25

== ENCOUNTER 2024-08-24 14:33 | Inpatient (IN) | payer MEDICARE, BC ==
[~2024-08-24] VITALS: Ht 170.2 cm; Wt 90.7 kg
[2024-08-24 15:18] LABS: BASOPHILS ABSOLUTE AUTO 0.06 K/mm3 (0.00-0.23); BASOPHILS PERCENT AUTO 1 % (0-2); EOSINOPHILS ABSOLUTE AUTO 0.08 K/mm3 (0.00-0.68); EOSINOPHILS PERCENT AUTO 1 % (0-6); Hematocrit 28.6 % (37.0-53.0); Hemoglobin 8.5 g/dL (13.5-17.5); IMMATURE GRAN ABSOLUTE AUTO 0.03 K/mm3 (0.00-0.10); IMMATURE GRAN PERCENT AUTO 0 % (0-1); LYMPHOCYTES ABSOLUTE AUTO 1.12 K/mm3 (0.84-5.20); LYMPHOCYTES PERCENT AUTO 14 % (21-46); MONOCYTES PERCENT AUTO 13 % (4-13); Mean Corpuscular HGB 26.6 pg (26.0-34.0); Mean Corpuscular HGB Conc 29.7 g/dL (31.5-36.5); Mean Corpuscular Volume 90 fL (80-100); NEUTROPHILS ABSOLUTE AUTO 5.48 K/mm3 (1.96-9.15); NEUTROPHILS PERCENT AUTO 71 % (41-73); Platelet Count 90 K/mm3 (150-400); RDW Coefficient Variation 21.6 % (11.7-14.2); RDW Standard Deviation 68.8 fL (35.1-46.3); Red Blood Cell Count 3.19 M/mm3 (4.30-5.90); White Blood Cell Count 7.77 K/mm3 (4.00-11.30)
[2024-08-24 15:33] LABS: Albumin, Blood 3.8 g/dL (3.4-5.0); Albumin/Globulin Ratio 1.2 (0.8-1.8); Bilirubin, Total 1.9 mg/dL (0.1-1.0); Bun/Creatinine Ratio 25.4 (12.0-20.0); Calcium, Blood 8.8 mg/dL (8.5-10.1); Creatinine, Blood 1.85 mg/dL (0.60-1.20); Globulin, Blood 3.1 g/dL (2.2-4.0); Potassium, Blood 4.7 mmol/L (3.5-5.5); Total Protein, Blood 6.9 g/dL (6.4-8.2)
[2024-08-24] MEDS ORDERED: Furosemide 10 MG/ML 4ML Vial IV ONE (16:35)
[2024-08-24] MEDS ORDERED: FLU VACC TS2024-25(6MOS UP)/PF 45 MCG/0.5 ML SYRINGE IM SCH (18:05)
[2024-08-24] MEDS ORDERED: Ondansetron HCl 2 MG / ML 2ML Vial IV PRN (18:05)
[2024-08-24] MEDS ORDERED: NITR.4SL SL (19:15)
[2024-08-24] MEDS ORDERED: [UNRECOGNIZED DRUG - CODE] PO (19:16)
[2024-08-24] MEDS ORDERED: CENTRUM SILVER1 EAC2 PO (19:16)
[2024-08-24] MEDS ORDERED: VITAMIN D310 MC4 PO (19:17)
[2024-08-24 20:43] VITALS: BP 108/60
[2024-08-24] MEDS ORDERED: Apixaban 5 MG Tab PO SCH (21:00)
[2024-08-25 02:53] VITALS: BP 127/72
--- NOTE | 2024-08-25 03:46 | NUR ---
SHIFT SUMMARY PATIENT HAS BEEN SLEEPING INTERMITTANTLY THROUGHOUT THE SHIFT. HE IS ORIENTED X2 AND VERY FORGETFUL. HE PULLED OUT HIS IV AND KEEPS REMOVING HIS NASAL CANNULA. VITAL SIGNS ARE STABLE. PATIENT HAS HIS CALL LIGHT WITHIN REACH AND HIS BED ALARM IS SET. SAFETY PRECAUTIONS ARE BEING MAINTAINED.
[2024-08-25 05:09] LABS: Bun/Creatinine Ratio 27.1 (12.0-20.0); Calcium, Blood 8.8 mg/dL (8.5-10.1); Creatinine, Blood 1.7 mg/dL (0.60-1.20)
[2024-08-25] MEDS ORDERED: Omeprazole 20 MG CapCR PO SCH (06:00)
[2024-08-25 07:27] VITALS: BP 123/73
[2024-08-25] MEDS ORDERED: Carvedilol 6.25 MG Tab PO SCH (08:00)
[2024-08-25] MEDS ORDERED: Furosemide 10 MG/ML 4ML Vial IV SCH (09:00)
[2024-08-25] MEDS ORDERED: Losartan Potassium 25 MG Tab PO SCH (09:00)
[2024-08-25] MEDS ORDERED: Spironolactone 50 MG Tab PO SCH (09:00)
--- NOTE | 2024-08-25 09:35 | NUR ---
Pt is a bit restless this am, set off bed alarm a number of times this am, a/ox2-3, forgetful, pleasant and cooperative with care, follows commands well, denies pain, lungs are clear in upper [place], dim in bases, resp even and unlabored, no cough noted or reported, on 2 liters 02 via n/c, hrr, has pacer, 4+ edema noted to b/l le, cap refill<3 sec, vs stable, afebrile, piv to left f/a, site is clear and patent, btx4, abd flat soft nontender, voids via urinal without diff, skin c/w/d, maew, melania, call light in reach.
[2024-08-25] MEDS ORDERED: Nitroglycerin 0.4 MG SUBL SL PRN (15:05)
[2024-08-25] MEDS ORDERED: Amoxicillin 500 MG Cap PO SCH (15:30)
[2024-08-25 16:26] VITALS: BP 108/60
--- NOTE | 2024-08-25 19:07 | NUR ---
pt b/p a bit soft, call to Dr. Yarbrough regarding coreg, she said to hold for tonight, he also has a nose bleed, sats are ok on r/a, holding cool washcloth to his nose at this time. has been ambulating around room and out in carroll with steady gait, did get slightly wobbly when he got up to go to the restroom. chair and bed alarm activated, call light in reach.
[2024-08-25 19:34] VITALS: BP 117/78
[2024-08-25] MEDS ORDERED: Allopurinol 100 MG Tab PO SCH (21:00)
[2024-08-25] MEDS ORDERED: Apixaban 5 MG Tab PO SCH (21:00)
[2024-08-26 04:19] VITALS: BP 131/75
[2024-08-26 05:07] LABS: Hematocrit 28.4 % (37.0-53.0); Hemoglobin 8.5 g/dL (13.5-17.5)
--- NOTE | 2024-08-26 05:10 | NUR ---
SHIFT SUMMARY: PT AOX3 WITH SOME CONFUSION AND IMPULSIVENESS THROUGH THE NIGHT. WOULD PULL AT LINE, TAKE OFF O2, AND RANDOMLY ATTEMPT TO USE THE BATHROOM. BED ALARM IN PLACE. TOLERATING MEDICATIONS WELL, VSS. NO ACUTE EVENTS OVERNIGHT. PT WARNED ME BEFORE START OF SHIFT THAT HE MAY "ACT FUNNY" THROUGHOUT THE NIGHT. PLEASANT AND EASILY REDIRECTABLE. PT IS SLEEPING IN BED, BED IN LOWEST POSITION, CALL LIGHT IN REACH. CONTINUING CARE.
[2024-08-26 05:33] LABS: Bun/Creatinine Ratio 27.7 (12.0-20.0); Calcium, Blood 8.6 mg/dL (8.5-10.1); Creatinine, Blood 1.55 mg/dL (0.60-1.20); Magnesium, Blood 2.8 mg/dL (1.6-2.4)
[2024-08-26 07:43] VITALS: BP 116/78
[2024-08-26] MEDS ORDERED: Empagliflozin 10 MG TAB PO SCH (09:00)
[2024-08-26] MEDS ORDERED: TRAZ50 PO (12:15)
[2024-08-26] MEDS ORDERED: Acetaminophen 500 MG Tab PO PRN (13:45)
[2024-08-26 15:16] VITALS: BP 106/67
[2024-08-26] MEDS ORDERED: Bumetanide 0.25 MG/ML 4ML ViaL IV SCH (18:00)
[2024-08-26 19:26] VITALS: BP 110/64
--- NOTE | 2024-08-26 19:47 | NUR ---
NO ACUTE CHANGES THIS SHIFT. PT STARTED ON BUMEX TONIGHT. STRICT I/O. PT SHOWERED SBA. WHILE AWAKE. SBA TO BATHROOM. 3L NC WHICH IS HIS BASELINE. ATTEMPTED TO USE FACE MASK HOWEVER PT UNABLE TO TOLORATE. PT DESAT TO 70S WHILE SLEEPING. ALERT AND ORIENTED X 3-4, FORGETFUL.
--- NOTE | 2024-08-27 04:42 | NUR ---
SHIFT SUMMARY: PT AOX4 WHILE AWAKE BUT DOES SUNDOWN PRETTY INTENSLY. PULLS AT LINES AND CORDS WHILE ASLEEP. MANAGED TO KNOCK OFF A SCAB ON HIS ELBOW AND HAD A SMALL BLEED, BANDAGE AND PRESSURE APPLIED. IV WRAPPED TO PREVENT BEING PULLED WITH SUCCESS. MANY SMALL VOIDS OVERNIGHT. PT IMPULSIVE AND WONT CALL IF WAKING UP. BED ALARM IN PLACE. TOLERATING MEDICATIONS WELL AND STILL VERY PLEASANT. STATES TO BE FEELING BETTER. PT IS SLEEPING IN BED, BED IN LOWEST POSITION, CALL LIGHT IN REACH. CONTINUING CARE.
[2024-08-27 04:59] VITALS: BP 118/72
[2024-08-27 05:37] LABS: Hematocrit 27.2 % (37.0-53.0); Hemoglobin 7.9 g/dL (13.5-17.5)
[2024-08-27 06:09] LABS: Bun/Creatinine Ratio 25.9 (12.0-20.0); Calcium, Blood 8.6 mg/dL (8.5-10.1); Creatinine, Blood 1.74 mg/dL (0.60-1.20); Magnesium, Blood 2.6 mg/dL (1.6-2.4); Phosphorus, Blood 4.4 mg/dL (2.5-4.9); Potassium, Blood 3.8 mmol/L (3.5-5.5)
[2024-08-27 07:21] VITALS: BP 124/63
[2024-08-27] MEDS ORDERED: Metolazone 2.5 MG Tab PO SCH (09:00)
[2024-08-27 15:27] VITALS: BP 111/63
--- NOTE | 2024-08-27 17:44 | NUR ---
SHIFT SUMMARY PATIENT ABLE TO WALK IN HALLS WITH SEVERAL TIMES THIS SHIFT USING FWW. CONFUSED THIS AM, CLEARED DURING THE DAY AND STARTED TO ABOUT 1700, PULLING AT IV AND BECOMING RESTLESS. BED ALARM ON. C/O HARD INFREQUENT STOOL, BOWEL MED ORDER OBTAINED, WILL START TONIGHT. TITRATED TO 2 LITERS, SATING 97% VIA PULSE OX. ABLE TO MAKE NEEDS KNOWN DURING THE DAY. CALL LIGHT IN REACH.
[2024-08-27 19:15] VITALS: BP 108/57
[2024-08-27] MEDS ORDERED: Docusate Sodium 100 MG Cap PO SCH (21:00)
[2024-08-27] MEDS ORDERED: Sennosides 8.6 MG Tab PO SCH (21:00)
[2024-08-28 04:04] VITALS: BP 119/74
--- NOTE | 2024-08-28 04:05 | NUR ---
SHIFT SUMMARY PATIENT HAD NO ACUTE CHANGES. AXOX 3 WITH CONFUSION AT TIMES. ONE ASSIST TO BSC. USES URINAL AT BEDSIDE. DENIES CHEST PAIN, SOB, AND N/V. VSS/AFEBRILE. ON 3L O2 NC. FLUID RESTRICTIONS 1,500 mL. CALL LIGHT IN REACH. BED IN LOWEST POSITION AND ALARM ACTIVATED. WILL CONTINUE TO MONITOR UNTIL DAY SHIFT NURSE ASSUMES CARE.
[2024-08-28 05:13] LABS: Hematocrit 26.6 % (37.0-53.0); Hemoglobin 7.8 g/dL (13.5-17.5)
[2024-08-28 05:34] LABS: Bun/Creatinine Ratio 26.8 (12.0-20.0); Calcium, Blood 8.5 mg/dL (8.5-10.1); Creatinine, Blood 1.64 mg/dL (0.60-1.20); Magnesium, Blood 2.6 mg/dL (1.6-2.4); Potassium, Blood 3.4 mmol/L (3.5-5.5)
[2024-08-28 07:19] VITALS: BP 106/67
[2024-08-28] MEDS ORDERED: Potassium Chloride 20 MEQ TabCR PO ONE (09:00)
--- NOTE | 2024-08-28 17:23 | NUR ---
SHIFT SUMMARY PATIENT ABLE TO SIT IN CHAIR AND AMBULATE IN HALLS THIS SHIFT. SETTING BED ALARM AND CHAIR ALARM OFF SEVERAL TIMES, FORGETS TO CALL. TOLERATING BUMEX WELL. TAKES AM MEDS WITH APPLESAUCE. ABLE TO MAKE NEEDS KNOWN. A/OX3-4, MORE FORGETFUL IN THE AM. CALL LIGHT IN REACH.
[2024-08-28 19:00] VITALS: BP 107/58
--- NOTE | 2024-08-29 03:47 | NUR ---
POINTER HELPER SUMMARY: PT A&O X3. PT UP TO EDGE OF BED AND BACK DOWN T/O SHIFT. BED ALARM ON D/T PT BEING IMPULSIVE/ FOGETS LIMITATIONS / LINE MANAGEMENT. SBA WITH FWW WHILE AMBULATING TO BATHROOM FOR LINE MANAGEMENT. SATS MAINTAINED ABOVE 90% ON 3L OXYGEN VIA NC. NO ACUTE DISTRESS / EVENTS T/O SHIFT. POSSIBLE D/C HOME THURSDAY. BED IN LOWEST POSITION, CALL LIGHT IN REACH. BED ALARM ON. CARES ONGOING ORDERED.
[2024-08-29 04:06] VITALS: BP 106/53
[2024-08-29 05:15] LABS: Hematocrit 26.5 % (37.0-53.0); Hemoglobin 7.9 g/dL (13.5-17.5)
[2024-08-29 05:25] LABS: Bun/Creatinine Ratio 28.8 (12.0-20.0); Calcium, Blood 8.9 mg/dL (8.5-10.1); Creatinine, Blood 1.6 mg/dL (0.60-1.20); Magnesium, Blood 2.4 mg/dL (1.6-2.4); Phosphorus, Blood 4.3 mg/dL (2.5-4.9); Potassium, Blood 3.7 mmol/L (3.5-5.5)
[2024-08-29 07:28] VITALS: BP 123/69
[2024-08-29] MEDS ORDERED: FURO20 PO (14:02)
--- NOTE | 2024-08-29 14:07 | NUR ---
1400- LASIX PRESCRIPTION SENT TO [facility] IN [place].
--- NOTE | 2024-08-29 14:51 | NUR ---
DC- PT DC IN STABLE CONDITION WITH HIS AND DAUGHTER FOR A RIDE. PT LEFT WITH ALL BELONGINGS. PT ON 2L WITH EXERTION AND RA AT REST.
== END 2024-08-29 13:35 | disposition home health service (06) | DRG 291 ==
LOC: ER 14:33 → MEDS 14:34 → ERHOLD 14:34 → MEDS 20:13
PROVIDERS: Emergency Medicine; Hospitalist; Nurse Practitioner Acute Care; ADMIT Student in an Organized Health Care Education/Training Program
DX: I13.0 Hypertensive heart and chronic kidney disease with heart failure and stage 1 through stage 4 chronic kidney disease, or unspecified chronic kidney disease (principal); I50.23 Acute on chronic systolic (congestive) heart failure; N17.9 Acute kidney failure, unspecified; I48.91 Unspecified atrial fibrillation; I27.20 Pulmonary hypertension, unspecified; J44.9 Chronic obstructive pulmonary disease, unspecified; K21.9 Gastro-esophageal reflux disease without esophagitis; D63.1 Anemia in chronic kidney disease; G47.33 Obstructive sleep apnea (adult) (pediatric); I25.10 Atherosclerotic heart disease of native coronary artery without angina pectoris; E66.01 Morbid (severe) obesity due to excess calories; S90.02XA Contusion of left ankle, initial encounter; W22.8XXA Striking against or struck by other objects, initial encounter; Z96.642 Presence of left artificial hip joint; Z95.0 Presence of cardiac pacemaker; Z95.3 Presence of xenogenic heart valve; Z68.32 Body mass index [BMI] 32.0-32.9, adult
CPT/HCPCS: 36415; 71045; 73610; 80048; 80053; 83735; 83880; 84100; 84484; 85014; 85018; 85025; 93005; 93010; 94761; 94762; 96374; 96376; 99285-25; A9270; G0378; J1940

== ENCOUNTER 2024-09-16 17:07 | Inpatient (IN) | payer MEDICARE, BC ==
[~2024-09-16] VITALS: Ht 170.2 cm; Wt 86.3 kg
[~2024-09-16 17:07] MED LIST changes: +CENTRUM SILVER1 EAC2 PO; +FURO20 PO; +NITR.4SL SL; +TRAZ50 PO; +VITAMIN D310 MC4 PO; +[UNRECOGNIZED DRUG - CODE] PO
[2024-09-16 17:45] LABS: BASOPHILS ABSOLUTE AUTO 0.04 K/mm3 (0.00-0.23); BASOPHILS PERCENT AUTO 1 % (0-2); EOSINOPHILS ABSOLUTE AUTO 0.09 K/mm3 (0.00-0.68); EOSINOPHILS PERCENT AUTO 1 % (0-6); Hematocrit 30.2 % (37.0-53.0); Hemoglobin 8.9 g/dL (13.5-17.5); IMMATURE GRAN ABSOLUTE AUTO 0.05 K/mm3 (0.00-0.10); IMMATURE GRAN PERCENT AUTO 1 % (0-1); LYMPHOCYTES ABSOLUTE AUTO 0.78 K/mm3 (0.84-5.20); LYMPHOCYTES PERCENT AUTO 10 % (21-46); MONOCYTES ABSOLUTE AUTO 1.06 K/mm3 (0.16-1.47); MONOCYTES PERCENT AUTO 13 % (4-13); Mean Corpuscular HGB 26.8 pg (26.0-34.0); Mean Corpuscular HGB Conc 29.5 g/dL (31.5-36.5); Mean Corpuscular Volume 91 fL (80-100); NEUTROPHILS ABSOLUTE AUTO 5.88 K/mm3 (1.96-9.15); NEUTROPHILS PERCENT AUTO 75 % (41-73); Platelet Count 118 K/mm3 (150-400); RDW Coefficient Variation 21.4 % (11.7-14.2); RDW Standard Deviation 70.6 fL (35.1-46.3); Red Blood Cell Count 3.32 M/mm3 (4.30-5.90)
[2024-09-16 18:14] LABS: Albumin, Blood 3.7 g/dL (3.4-5.0); Albumin/Globulin Ratio 1.4 (0.8-1.8); Bilirubin, Total 1.8 mg/dL (0.1-1.0); Bun/Creatinine Ratio 35.2 (12.0-20.0); Calcium, Blood 8.8 mg/dL (8.5-10.1); Creatinine, Blood 1.62 mg/dL (0.60-1.20); Globulin, Blood 2.7 g/dL (2.2-4.0); Total Protein, Blood 6.4 g/dL (6.4-8.2)
[2024-09-16] MEDS ORDERED: Ondansetron HCl 2 MG / ML 2ML Vial IV PRN (21:25)
[2024-09-16] MEDS ORDERED: Furosemide 10 MG/ML 4ML Vial IV SCH (22:00)
[2024-09-16 23:29] VITALS: BP 126/71
[2024-09-17] MEDS ORDERED: BUME1 PO (00:05)
[2024-09-17] MEDS ORDERED: ALLO100 PO (00:06)
[2024-09-17] MEDS ORDERED: Melatonin 3 MG Tab PO ONE (01:40)
[2024-09-17 01:56] VITALS: BP 96/50
[2024-09-17 02:05] VITALS: BP 110/61
[2024-09-17] MEDS ORDERED: FentaNYL Citrate 50 MCG/ML 2 ML Injection IV PRN (02:50)
[2024-09-17] MEDS ORDERED: Allopurinol 100 MG Tab PO SCH (04:15)
[2024-09-17 05:55] LABS: Bun/Creatinine Ratio 36.8 (12.0-20.0); Calcium, Blood 8.6 mg/dL (8.5-10.1); Creatinine, Blood 1.55 mg/dL (0.60-1.20); Magnesium, Blood 2.8 mg/dL (1.6-2.4)
--- NOTE | 2024-09-17 05:55 | NUR ---
SHIFT SUMM: PT IS A 79 YO FULL CODE WHO WAS ADMITTED FOR CHF EXACERBATION.PT WAS A TRANSFER FROM THE ED TONIGHT AND IS CONT W/URINAL AND TO THE BATHROOM FOR BM'S.PT HAD A BM TONIGHT. PT IS A 1 ASSIST W/WALKER AND HAS HAD A HARD TOME SLEEPING TONIGHT AND SOME PAIN CONTROL ISSUES. I CALLED THE HOSPITALIST AND MELATONIN WAS ORDERED, FENTANYL WAS ORDERED FOR FOOT PAIN AND WHEN THAT DIDNT HELP THE PT'S ALLPURINOL FOR GOUT WAS ORDERED AND SEEMED TO BRING SOME RELIIEF. PT HAS NOT SLEPT THIS EVENING AND HAS HAD SOME CONFUSION THE SHIFT HAS WENT ON. PT CALLS OUT FOR NURSE BUT THEN WHEN I CHECK ON HIM HE REPORTS BEING FINE. PT IS ON TELE AND HAS A PACEMAKER NSR AT 82 AND A HIST OF A-FIB. PT DOES NOT ALWAYS CALL WHEN HE NEEDS SOMETHING AND BED ALARM HAS BEEN SET FOR SAFETY AND CALL LIGHT IS IN REACH.
[2024-09-17 07:38] VITALS: BP 100/65
[2024-09-17] MEDS ORDERED: Apixaban 5 MG Tab PO SCH (09:00)
[2024-09-17 11:12] VITALS: BP 121/72
[2024-09-17] MEDS ORDERED: Nitroglycerin 0.4 MG SUBL SL PRN (12:25)
[2024-09-17] MEDS ORDERED: TraZODone HCl 50 MG Tab PO PRN (12:25)
[2024-09-17] MEDS ORDERED: Oxymetazoline 0.05% Nasal Relief Spray 15mL BTL PRN (12:35)
[2024-09-17] MEDS ORDERED: Spironolactone 50 MG Tab PO SCH (13:00)
[2024-09-17] MEDS ORDERED: Amoxicillin 500 MG Cap PO SCH (14:00)
[2024-09-17 16:09] VITALS: BP 119/72
[2024-09-17] MEDS ORDERED: Carvedilol 3.125 MG Tab PO SCH (17:00)
[2024-09-17] MEDS ORDERED: Metolazone 2.5 MG Tab PO SCH (18:00)
--- NOTE | 2024-09-17 19:31 | NUR ---
SUMMARY- AAOX2. X1 ASSIST W/WALKER TO CHAIR/BATHROOM. ON 1L O2 CONTINUOUSLY VIA NC. PT HAD "GOUT PAIN" AT THE END OF SHIFT THAT WAS 10/10 AND NOT CONTROLLED WITH FENTANYL; COLCHICINE ADDED. NO OTHER ACUTE EVENTS THIS SHIFT.
[2024-09-17 19:45] VITALS: BP 114/74
[2024-09-17] MEDS ORDERED: Lactobacil 2-S.Thermo-Bifido 1 1 Cap PO SCH (21:00)
[2024-09-17] MEDS ORDERED: Docusate Sodium 100 MG Cap PO SCH (21:00)
[2024-09-17] MEDS ORDERED: Colchicine 0.6 MG TAB PO SCH (21:00)
[2024-09-17] MEDS ORDERED: Melatonin 3 MG Tab PO SCH (21:00)
[2024-09-17] MEDS ORDERED: Sennosides 8.6 MG Tab PO SCH (21:00)
--- NOTE | 2024-09-18 03:00 | NUR ---
SHIFT SUMM: PT HAS BEEN UP MOST OF THE SHIFT REGARDLESS OF MEDICATIONS GIVEN TO HELP HIM SLEEP. PT HAS HAD SOME CONFUSION AND ON 2L OF OXYGEN PER NC. PT CALLS OFTEN AND FORGETS WHY HE CALLED. PT HAS BEEN USING THE URINAL WITH ASSISTANCE AND A FWW TO THE BATHROOM. I HAVE HAD BED AND CHAIR ALARM SET THIS SHIFT FOR PT SAFETY. PT TAKES MEDS WHOLE W/APPLESAUCE. PT'S PAIN SEEMS TO BE MORE CONTROLLED THIS SHIFT COMPARED TO THE NIGHT BEFORE. PT IS ON TELE AND OFTEN PULLS OFF TELE LEADS BUT IS VPACED AT 81. PT HAS CALL LIGHT IN REACH.
[2024-09-18 03:57] VITALS: BP 116/66
--- NOTE | 2024-09-18 05:20 | NUR ---
PT HAS BEEN PULLING OF TELE LEADS THROUGHOUT THE NIGHT AT NOT WANTING TO WEAR TELE.PT ALSO PULLED OUT IV AND THEN STATED "I DIDNT PULL IT OUT BUT IT FELL OUT". NEW IV PLACED IN [facility] AND MARKETING RESEARCH COORDINATOR CALLED ME TO TELL ME THE PT WAS EXPERIENCING ST ELEVATION. VITALS TAKEN AND WNL, EKG DONE AND PT IS NOT EXPERIENCING CP OR PRESSURE.PT IS NOT SYMPTOMATIC AND REPORTS "FEELING FINE". PT IS ON TELE VPACED @82 AND HAS BED ALARM SET FOR SAFETY. PT HAS NOT SLEPT THIS WELLNESS NURSE RN.
[2024-09-18 05:32] LABS: BASOPHILS ABSOLUTE AUTO 0.06 K/mm3 (0.00-0.23); BASOPHILS PERCENT AUTO 1 % (0-2); EOSINOPHILS ABSOLUTE AUTO 0.08 K/mm3 (0.00-0.68); EOSINOPHILS PERCENT AUTO 1 % (0-6); Hematocrit 30.4 % (37.0-53.0); Hemoglobin 9.1 g/dL (13.5-17.5); IMMATURE GRAN ABSOLUTE AUTO 0.07 K/mm3 (0.00-0.10); IMMATURE GRAN PERCENT AUTO 1 % (0-1); LYMPHOCYTES ABSOLUTE AUTO 1.02 K/mm3 (0.84-5.20); LYMPHOCYTES PERCENT AUTO 11 % (21-46); MONOCYTES ABSOLUTE AUTO 1.51 K/mm3 (0.16-1.47); MONOCYTES PERCENT AUTO 17 % (4-13); Mean Corpuscular HGB 26.7 pg (26.0-34.0); Mean Corpuscular HGB Conc 29.9 g/dL (31.5-36.5); Mean Corpuscular Volume 89 fL (80-100); NEUTROPHILS PERCENT AUTO 69 % (41-73); Platelet Count 120 K/mm3 (150-400); RDW Coefficient Variation 21.2 % (11.7-14.2); RDW Standard Deviation 68.4 fL (35.1-46.3); Red Blood Cell Count 3.41 M/mm3 (4.30-5.90); White Blood Cell Count 8.94 K/mm3 (4.00-11.30)
[2024-09-18] MEDS ORDERED: Omeprazole 20 MG CapCR PO SCH (06:00)
[2024-09-18 06:01] LABS: Bun/Creatinine Ratio 38.6 (12.0-20.0); Calcium, Blood 8.7 mg/dL (8.5-10.1); Creatinine, Blood 1.58 mg/dL (0.60-1.20); Potassium, Blood 3.9 mmol/L (3.5-5.5)
[2024-09-18 08:00] VITALS: BP 132/76
[2024-09-18 16:55] VITALS: BP 116/70
[2024-09-18] MEDS ORDERED: Furosemide 10 MG/ML 4ML Vial IV SCH (18:00)
--- NOTE | 2024-09-18 18:01 | NUR ---
PT HAD NO ACUTE EVENTS TODAY. ORIENTED TO SELF AND PLACE ONLY AND IS ON 2L OXYGEN VIA NC. DAILY WT PERFORMED = 94.8 KG. BLADDER SCAN PERFORMED = 228 ML. PT REPORTS TOLERABLE FOOT/LEG PAIN 11/22, POLITELY DECLINED PAIN MEDS WHEN OFFERED. STANDS WITH ASSIST TO USE URINAL, AMBULATES WITH ASSIST TO THE BATHROOM, GAIT UNSTEADY. BED ALARMS SET FOR PT SAFETY WHEN IN BED OR CHAIR. PT'S ADVISED THAT "HE LIKES TO PULL OUT HIS IVS". PT TOOK SEVERAL SHORT NAPS THROUGHOUT THE DAY.
[2024-09-18 19:37] VITALS: BP 130/73
[2024-09-19] VITALS (7 sets, daily range): BP systolic 94–124; BP diastolic 62–84
--- NOTE | 2024-09-19 04:34 | NUR ---
SHIFT SUMMARY: PT AOX3-4 WITH SOME CONFUSION BUT EASILY REORIENTED. VERY PLEASANT, CALLS APPROPRIATELY, ABLE TO MAKE NEEDS KNOWN. HAS HAD SOME CHANGES IN HIS ST SEGMENT PER TELE BUT HAS BEEN HAPPENING SINCE YESTERDAY, PT HAS BEEN ASSYMPTOMATIC DENIES ANY CP, AND HAS BEEN PERFORMING ADLS WITHOUT ISSUE. GOOD OUT PUT OVERNIGHT. DESATS TO THE LOW 80S AT NIGHT AND WILL SHOOT BACK UP TO THE HIGH 90S. TOLERATING MEDICATIONS WELL. NO ACUTE EVENTS OVERNIGHT. PT IN BED SLEEPING, BED IN LOWEST POSITION, CALL LIGHT IN REACH. CONTINUING CARE.
[2024-09-19 06:40] LABS: Albumin, Blood 3.3 g/dL (3.4-5.0); Albumin/Globulin Ratio 1.2 (0.8-1.8); Bilirubin, Total 1.9 mg/dL (0.1-1.0); Bun/Creatinine Ratio 39.7 (12.0-20.0); Calcium, Blood 8.8 mg/dL (8.5-10.1); Creatinine, Blood 1.51 mg/dL (0.60-1.20); Globulin, Blood 2.8 g/dL (2.2-4.0); Potassium, Blood 3.2 mmol/L (3.5-5.5); Total Protein, Blood 6.1 g/dL (6.4-8.2)
[2024-09-19] MEDS ORDERED: PredniSONE 5 MG Tab PO SCH (09:00)
[2024-09-19] MEDS ORDERED: Potassium Chloride 20 MEQ TabCR PO ONE (09:00)
--- NOTE | 2024-09-19 17:11 | NUR ---
SHIFT SUMMARY: PT CHOKED ON FOOD DURING LUNCH, RAPID RESPONSE INITIATED. NPO STATUS UNTIL SPEECH THERAPY CONSULT FOR SWALLOW ASSESSMENT. PT WEIGHT OBTAINED = 93.1 KG. PT HAS BEEN URINATING FREQUENTLY THROUGHOUT THE DAY WITH ASSIST, GAIT UNSTEADY. ORIENTED TO SELF, PLACE, AND SITUATION. PAIN TOLERABLE AT 6/10, DID NOT REQUEST PAIN MEDS TODAY. PT HAS SLEPT INTERMITTENTY THROUGHOUT THE DAY FOR 15-30 MINUTES AT A TIME.
[2024-09-20] VITALS (9 sets, daily range): BP systolic 100–121; BP diastolic 48–87
[2024-09-20 06:08] LABS: BASOPHILS ABSOLUTE AUTO 0.04 K/mm3 (0.00-0.23); BASOPHILS PERCENT AUTO 0 % (0-2); EOSINOPHILS ABSOLUTE AUTO 0.11 K/mm3 (0.00-0.68); EOSINOPHILS PERCENT AUTO 1 % (0-6); Hematocrit 29.3 % (37.0-53.0); Hemoglobin 8.7 g/dL (13.5-17.5); IMMATURE GRAN ABSOLUTE AUTO 0.05 K/mm3 (0.00-0.10); IMMATURE GRAN PERCENT AUTO 1 % (0-1); LYMPHOCYTES ABSOLUTE AUTO 0.88 K/mm3 (0.84-5.20); LYMPHOCYTES PERCENT AUTO 9 % (21-46); MONOCYTES PERCENT AUTO 14 % (4-13); Mean Corpuscular HGB 26.5 pg (26.0-34.0); Mean Corpuscular HGB Conc 29.7 g/dL (31.5-36.5); Mean Corpuscular Volume 89 fL (80-100); NEUTROPHILS ABSOLUTE AUTO 7.27 K/mm3 (1.96-9.15); NEUTROPHILS PERCENT AUTO 75 % (41-73); Platelet Count 115 K/mm3 (150-400); RDW Coefficient Variation 21.2 % (11.7-14.2); RDW Standard Deviation 67.9 fL (35.1-46.3); Red Blood Cell Count 3.28 M/mm3 (4.30-5.90); White Blood Cell Count 9.65 K/mm3 (4.00-11.30)
[2024-09-20 06:30] LABS: Bun/Creatinine Ratio 42.2 (12.0-20.0); Calcium, Blood 9.1 mg/dL (8.5-10.1); Creatinine, Blood 1.28 mg/dL (0.60-1.20); Potassium, Blood 3.2 mmol/L (3.5-5.5)
--- NOTE | 2024-09-20 06:44 | NUR ---
SHIFT SUMMARY PT HAS BEEN PLEASANT OVERNIGHT. HE HAS BEEN AOX4. HE HAS BEEN IN CHAIR FOR A LARGE PORTION OF NIGHT, HE HAS NOT BEEN ABLE TO GET COMFORTABLE IN BED OVERNIGHT. HE HAS HAD CONSTANT PAIN FROM GOUT IN R FOOT. PT HAS BEEN SBA TO BS. PT HAS BEEN ON 3LNC. NO COMPLAINTS FROM PT OVERNIGHT. NO ACUTE EVENTS OVERNIGHT.
[2024-09-20] MEDS ORDERED: Apixaban 5 MG Tab PO SCH (09:00)
[2024-09-20] MEDS ORDERED: Sennosides 8.6 MG Tab PO SCH (12:20)
[2024-09-20] MEDS ORDERED: Polyethylene Glycol 3350 17 gm PO SCH (12:20)
[2024-09-20] MEDS ORDERED: Potassium Chloride 20 MEQ TabCR PO ONE (12:20)
--- NOTE | 2024-09-20 13:20 | NUR ---
DR. GALVEZ TO BEDSIDE. THIS RN PROVIDED UPDATE ON CONSTIPATION AND MORNING POTASSIUM LAB. ORDERS FOR STOOL SOFTNERS AND KCL PO 40 MEQ X1 NOW. ORDERS IN [address]. PO POTASSIUM GIVEN. PATIENT SITTING UP IN CHAIR EATING LUNCH AT THIS TIME. TO BEDSIDE THIS AM AND UPDATED BY THIS RN.
--- NOTE | 2024-09-20 18:18 | NUR ---
SHIFT SUMMARY: PATIENT ALERT AND ORIENTED X3. FORGETFUL AND AT TIMES CONFUSED ON TIME OF DAY. UP WITH FRONT WHEEL WALKER AND SBA. PATIENT TOOK ONE WALK AROUND UNIT TODAY AND UP TO BATHROOM. DENIES NUMBNESS/TINGLING. INTERMIT FOOT PAIN DUE TO GOUT. TELE SHOWING V PACED WITH HR 80'S. DENIES CHEST PAIN/PRESSURE/PALPITATIONS THROUGHOUT SHIFT. IV LASIX GIVEN PER EMAR. SBP 100-110'S. IMPROVING BLE EDEMA. SCD'S IN PLACE WHEN PATIENT IS LAYING IN BED. ON 3L NASAL CANNULA WHICH IS PATIENTS BASELINE. CONTINUOUS PULSE OX IN PLACE. OCCASIONAL COUGH. SPEECH THERAPY IN THIS MORNING, SEE ORDERS. BOWEL TONES PRESENT THROUGHOUT ALL FOUR QUADRANTS. TOLERATING PO DIET. UP TO BATHROOM WITH A COUPLE BOWEL MOVEMENTS. BOWEL MOVEMENTS SMALL AND HARD. STOOL SOFTNERS ON BOARD. USING URINAL TO VOID. AT BEDSIDE THIS AM AND UPDATED BY THIS RN. USE OF BED ALARM AND CHAIR ALARMS. PATIENT CALLING FOR NEEDS. CALL LIGHT IN REACH. PATIENT EATING DINNER IN CHAIR AT THIS TIME.
[2024-09-21 03:34] VITALS: BP 111/76
--- NOTE | 2024-09-21 05:58 | NUR ---
SHIFT SUMMARY: PT AOX3 SOME CONFUSION. SUNDOWNS MILDLY. PT SLIGHTLY IMPULSIVE BED ALARM IN PLACE. PT MOVES AROUND A LOT IN SLEEP, REMOVING OXYGEN AND SPO2 PROBE. REAPPLIED WHEN POSSIBLE. PT COMPLIANT IN CARE AND CALLS APPROPRIATELY AT TIMES. PT HAD SEVERAL SMALL BMS BUT NOTHING MAJOR DESPITE AGGRESIVE BOWEL PREP. GOOD URINARY OUTPUT THROUGHOUT THE SHIFT. PT TOLERATING MEDICATIONS WELL, COMPLAINS OF GOUT PAIN, MEDICATED PER EMR. PT VSS AND NO ACUTE EVENTS OVERNIGHT. PT IN BED RESTING, BED IN LOWEST POSITION, CALL LIGHT IN REACH. CONTINUING CARE.
[2024-09-21 07:57] VITALS: BP 110/67
[2024-09-21 08:46] LABS: BASOPHILS ABSOLUTE AUTO 0.03 K/mm3 (0.00-0.23); BASOPHILS PERCENT AUTO 0 % (0-2); EOSINOPHILS ABSOLUTE AUTO 0.12 K/mm3 (0.00-0.68); EOSINOPHILS PERCENT AUTO 1 % (0-6); Hemoglobin 8.7 g/dL (13.5-17.5); IMMATURE GRAN ABSOLUTE AUTO 0.06 K/mm3 (0.00-0.10); IMMATURE GRAN PERCENT AUTO 1 % (0-1); LYMPHOCYTES ABSOLUTE AUTO 0.85 K/mm3 (0.84-5.20); LYMPHOCYTES PERCENT AUTO 8 % (21-46); MONOCYTES ABSOLUTE AUTO 1.52 K/mm3 (0.16-1.47); MONOCYTES PERCENT AUTO 15 % (4-13); Mean Corpuscular HGB 26.9 pg (26.0-34.0); Mean Corpuscular Volume 90 fL (80-100); NEUTROPHILS ABSOLUTE AUTO 7.78 K/mm3 (1.96-9.15); NEUTROPHILS PERCENT AUTO 75 % (41-73); Platelet Count 111 K/mm3 (150-400); RDW Coefficient Variation 21.2 % (11.7-14.2); RDW Standard Deviation 68.1 fL (35.1-46.3); Red Blood Cell Count 3.23 M/mm3 (4.30-5.90); White Blood Cell Count 10.36 K/mm3 (4.00-11.30)
[2024-09-21 09:03] LABS: Bun/Creatinine Ratio 42.4 (12.0-20.0); Calcium, Blood 9.2 mg/dL (8.5-10.1); Creatinine, Blood 1.18 mg/dL (0.60-1.20); Potassium, Blood 3.4 mmol/L (3.5-5.5)
[2024-09-21] MEDS ORDERED: Potassium Chloride 20 MEQ TabCR PO ONE (10:00)
[2024-09-21 12:48] LABS: Base Excess Venous 18.8 mmol/L
[2024-09-21 12:55] LABS: pH Blood Venous 7.54 (7.34-7.37)
[2024-09-21 13:37] VITALS: BP 119/67
[2024-09-21 14:14] LABS: Base Excess Venous 17.6 mmol/L; Bicarbonate Venous 39.8 mmol/L (24.0-30.0); PCO2 Venous 50.5 mmHg (38-42); pH Blood Venous 7.51 (7.34-7.37)
[2024-09-21] MEDS ORDERED: Furosemide 40 MG Tab PO SCH (18:00)
[2024-09-21] MEDS ORDERED: AcetaZOLAMIDE Sodium 500 MG Vial IV SCH (18:00)
--- NOTE | 2024-09-21 18:28 | NUR ---
SHIFT SUMMARY PATIENT A/OX2-4, ABLE TO MAKE NEEDS KNOWN. IMPULSIVE AT TIMES, BED ALARM AND CHAIR ALARM IN PLACE. AT BEDISDE MOST OF SHIFT TODAY. PATIENT LETHARGIC THIS MORNING, APNIEC BREATHING. REPORTS 3 LPM OXYGEN VIA NASAL CANNULA BASELINE, SPO2 DROPPING TO 60% INTERMITTENTLY WITH APNEIC EPISODES AND RETRUNING TO ABOVE 90% QUICKLY. O2 MASK PLACED AND RESPIRATORY THERAPY CALLED. MD NOTIFIED AND BIPAP ORDERED AND PATIENT AGREEABLE FOR SHORT TIME UNTIL STATED "IT'S SUFFOCATING ME" SPOUSE REMOVED BIPAP. PATIENT AND SPOUSE NO LONGER RECEPTIVE TO EDUCATION REGUARDING BIPAP. TELEMETRY, V PACED 88, NO EVENTS NOTED THIS SHIFT. CONTINUOUS PULSE OX IN PLACE. WHEN RESPIRATORY THERAPY WAS IN THE ROOM PATIENT WAS NOTED TO HAVE ASPIRATED ON A BEVERAGE, SPEECH THERAPY CAME TO BEDSIDE. PATIENT MORE AWAKE AND ALERT AND WITHOUT DIFFICULTY EATING OR DRINKING. VBGs OBTAINED. PATIENT CONTINUES WITH 2-3+ EDEMA TO BLE AND FEET. DIURETICS ADJUSTED THIS SHIFT. NO OTHER CONCERNS AT THIS TIME.
[2024-09-21 19:48] VITALS: BP 109/78
--- NOTE | 2024-09-21 23:28 | NUR ---
PT REFUSED BIPAP.
[2024-09-22 00:23] VITALS: BP 102/65
[2024-09-22 04:15] VITALS: BP 112/67
--- NOTE | 2024-09-22 05:56 | NUR ---
SHIFT SUMMARY PT HAS BEEN RESTLESS THROUGHOUT NIGHT. HE HAS BEEN AO3-4, CALM AND COOPERATIVE. PT HAS BEEN ON 3LNC, AND HE HAS REFUSED BIPAP OVERNIGHT. PT HAS BEEN ON CONT PULSE OX MONITORING. PT HAS BEEN ON TELEMETRY. PT HAS HAD EPISODES OF FORGETFULNESS, OFTEN TAKING OFF NC. PT HAS BEEN RESTLESS WELL, TOSSING AND TURNING, SITTING UP AT SIDE OF BED, OFTEN SETTING OFF BED ALARM. PT HAS BEEN 1PA W/ FWW. BED HAS BEEN LOCKED IN LOWEST POSITION WITH BED ALARM ARMED.
[2024-09-22 07:15] VITALS: BP 107/60
[2024-09-22 10:35] LABS: BASOPHILS ABSOLUTE AUTO 0.05 K/mm3 (0.00-0.23); BASOPHILS PERCENT AUTO 1 % (0-2); EOSINOPHILS PERCENT AUTO 1 % (0-6); Hematocrit 29.5 % (37.0-53.0); IMMATURE GRAN ABSOLUTE AUTO 0.05 K/mm3 (0.00-0.10); IMMATURE GRAN PERCENT AUTO 1 % (0-1); LYMPHOCYTES ABSOLUTE AUTO 0.88 K/mm3 (0.84-5.20); LYMPHOCYTES PERCENT AUTO 9 % (21-46); MONOCYTES ABSOLUTE AUTO 1.41 K/mm3 (0.16-1.47); MONOCYTES PERCENT AUTO 15 % (4-13); Mean Corpuscular HGB 27.1 pg (26.0-34.0); Mean Corpuscular HGB Conc 30.5 g/dL (31.5-36.5); Mean Corpuscular Volume 89 fL (80-100); NEUTROPHILS ABSOLUTE AUTO 7.11 K/mm3 (1.96-9.15); NEUTROPHILS PERCENT AUTO 74 % (41-73); Platelet Count 108 K/mm3 (150-400); RDW Coefficient Variation 20.9 % (11.7-14.2); RDW Standard Deviation 65.3 fL (35.1-46.3); Red Blood Cell Count 3.32 M/mm3 (4.30-5.90)
[2024-09-22 10:58] LABS: Bun/Creatinine Ratio 38.7 (12.0-20.0); Calcium, Blood 9.3 mg/dL (8.5-10.1); Creatinine, Blood 1.19 mg/dL (0.60-1.20); Potassium, Blood 3.3 mmol/L (3.5-5.5)
[2024-09-22 11:36] VITALS: BP 106/64
[2024-09-22] MEDS ORDERED: Potassium Chloride 20 MEQ TabCR PO ONE (12:00)
[2024-09-22] MEDS ORDERED: POTCHL20ER PO (12:30)
[2024-09-22] MEDS ORDERED: MIRALAX17 GM PO (12:30)
[2024-09-22] MEDS ORDERED: CARV3.125 PO (12:30)
[2024-09-22] MEDS ORDERED: FURO40 PO (12:30)
[2024-09-22 15:06] VITALS: BP 104/70
--- NOTE | 2024-09-22 15:59 | NUR ---
DISCHARGE NOTE: PATIENT DISCHARGED HOME WITH SPOUSE. EDUCATION REGARDING NEW MEDICATIONS AND FOLLOW UP APPOINTMENTS WITH [employer] SURVEYING AND PRIMARY PROVIDER. IV, TELEMETRY, CONTINUOUS PULSE DISCONTINUED AND REMOVED. CONTINUES WITH 3 LITERS OXYGEN VIA NASAL CANNULA. PATIENT SPOUSE AGREEABLE TO DISCHARGE PAPERS AND EDUCATION. TRASFERED TO VEHICLE BY [employer].
== END 2024-09-22 15:55 | disposition home or self-care (01) | DRG 291 ==
LOC: ER 17:07 → MEDS 21:44 → ERHOLD 21:44 → MEDS 23:38
PROVIDERS: Emergency Medicine; Hospitalist; Internal Medicine; Nurse Practitioner Acute Care; ADMIT Internal Medicine
DX: I13.0 Hypertensive heart and chronic kidney disease with heart failure and stage 1 through stage 4 chronic kidney disease, or unspecified chronic kidney disease (principal); I50.23 Acute on chronic systolic (congestive) heart failure; N17.9 Acute kidney failure, unspecified; J96.11 Chronic respiratory failure with hypoxia; I47.20 Ventricular tachycardia, unspecified; M54.16 Radiculopathy, lumbar region; I48.91 Unspecified atrial fibrillation; I27.20 Pulmonary hypertension, unspecified; K21.9 Gastro-esophageal reflux disease without esophagitis; M10.9 Gout, unspecified; Z96.642 Presence of left artificial hip joint; N18.30 Chronic kidney disease, stage 3 unspecified; D63.1 Anemia in chronic kidney disease; D69.6 Thrombocytopenia, unspecified; E66.01 Morbid (severe) obesity due to excess calories; I25.10 Atherosclerotic heart disease of native coronary artery without angina pectoris; G47.33 Obstructive sleep apnea (adult) (pediatric); R55 Syncope and collapse; Z79.2 Long term (current) use of antibiotics; Z79.899 Other long term (current) drug therapy; Z88.8 Allergy status to other drugs, medicaments and biological substances; Z79.01 Long term (current) use of anticoagulants; Z98.1 Arthrodesis status; Z98.890 Other specified postprocedural states; Z95.0 Presence of cardiac pacemaker; Z95.2 Presence of prosthetic heart valve; Z86.19 Personal history of other infectious and parasitic diseases
CPT/HCPCS: 36415; 70450; 71045; 80048; 80053; 82803; 83735; 83880; 84484; 85025; 85379; 92610; 93005; 93010; 94660; 94760; 94762; 96374; 96375; 96376; 99285-25; A9270; G0378; J1120; J1940; J3010; J7512